=== PATIENT | male | born 1945 | race Caucasian/White ===

== ENCOUNTER → 2024-01-16 08:16 | Outpatient (REF) | payer OTHER, SELFPAY | LOC: PAVMRI 08:16 | PROVIDERS: ATTENDING PHYSICIAN Nurse Practitioner Family; FAMILY PHYSICIAN Internal Medicine | DX: R26.89 Other abnormalities of gait and mobility (principal); R26.0 Ataxic gait | CPT/HCPCS: 70553; A9575 ==

== ENCOUNTER 2024-04-23 18:24 | Emergency (ER) | payer OTHER, SELFPAY ==
[2024-04-23 18:35] VITALS: BP 119/64
[2024-04-23 18:54] LABS: % Basophils 0.5 % (0-2); % Immature Granulocytes 0.3 % (0-0.5); % Lymphocytes 21.8 % (20.5-51.1); % Monocytes 14.3 % (1.7-9.3); % Neutrophils 60.1 % (42.2-75.2); Absolute Basophils 0.1 10^3/uL (0-0.2); Absolute Eosinophils 0.3 10^3/uL (0-0.7); Absolute Monocytes 1.3 10^3/uL (0.1-0.6); Absolute Neutrophils 5.5 10^3/uL (1.4-6.5); Hematocrit 36.8 % (39.0-52.0); Hemoglobin 12.6 g/dL (13.0-18.0); Mean Corp Hgb Conc. 34.2 g/dL (33.0-37.0); Mean Corpuscular Hgb 31.2 pg (27.0-31.0); Mean Corpuscular Volume 91.1 fL (80.0-94.0); Mean Platelet Volume 9.9 fL (7.4-10.4); Nucleated Red Blood Cells % 0 % (-); Platelet Count 221 10^3/uL (130-400); Red Blood Cell Count 4.04 10^6/uL (4.70-6.10); Red Cell Dist. Width 14.3 % (11.5-14.5); White Blood Cell Count 9.1 10^3/uL (4.8-10.8)
[2024-04-23 19:17] LABS: ALT (SGPT) 11 U/L (0-50); AST (SGOT) 16 U/L (17-59); Albumin 4.2 g/dl (3.5-5.0); Alkaline Phosphatase 81 U/L (38-126); Blood Urea Nitrogen 18 mg/dl (9-20); Calcium 9.3 mg/dl (8.4-10.2); Carbon Dioxide 25 mmol/L (22-30); Chloride 104 mmol/L (98-107); Glucose 137 mg/dl (70-99); Potassium 4.1 mmol/L (3.5-5.1); Sodium 139 mmol/L (135-145); Total Bilirubin 0.9 mg/dl (0.2-1.3); Total Protein 6.8 g/dl (6.3-8.2); eGFR 56.58
[2024-04-23 20:23] VITALS: BP 126/56
--- NOTE | 2024-04-23 22:25 | ED.GENMED ---
History of Present Illness
General
Chief Complaint: Weakness
Time Seen by Provider: 04/23/24 20:47
History of Present Illness
History of Present Illness:
78-year-old male with history of diabetes and hypertension presented to the emergency department for an episode of dizziness. Patient reports this afternoon he was taking a nap. His grandson woke him up he was very disoriented. He did not know
where he was. He took 5 minutes to get his bearings in order. He was then feeling very dizzy going up and down the stairs. He went to go repair a pipe with PVC piping glue which he felt worsen the dizziness. Does admit that he does not drink
much water, drinks coffee. Denies focal weakness or sensory deficits to his extremities. Denies headache or visual changes. Denies known history of stroke, however reports that he was told in the past that he had an old stroke, however has no
deficits. Denies chest pain or difficulty breathing. Reports that he is currently asymptomatic denies additional acute medical complaints.
Past History
Past History
ED Past Medical History: CAD, Cancer, HTN and NIDDM
ED Past Surgical History: Cardiac
Social History
Tobacco: Former smoker
Alcohol: None
Drug: None
Personal:
Living: with family
Phy Exam
Physical Exam
Physical Exam:
General: Well-appearing, no clinical signs of dehydration, nontoxic and in no acute distress
HEENT: protecting airway
Neck: appears supple
CV: Normal heart rate, regular rhythm, no evidence of cyanosis
Resp: No accessory muscle use, no increased work of breathing, lungs clear to auscultation bilaterally
Abd: Soft and non-distended, no tenderness to palpation, normal bowel sounds
Extremities: No deformities, no swelling, no erythema, pulses and sensation intact
Neuro: alert, no focal neurologic deficit
: deferred
Rectal: deferred
Psych: Normal affect
Skin: Intact
Course
Orders/Labs/Results
Orders:
Orders
04/23/24 18:37
Electrocardiogram (*1) Urgent
Reason for Study: Fatigue / Weakness
CT Head W/o Iv Contrast Urgent
Comment:
Reason For Exam: weakness and dizzy/ diff ambulating
EKG- Treatment ONCE
04/23/24 18:48
Complete Blood Count/With Diff Urgent
Comprehensive Metabolic Panel Urgent
Abnormal Lab Results
04/23/24
18:48
RBC 4.04 L 10^6/uL
(4.70-6.10)
Hgb 12.6 L g/dL
(13.0-18.0)
Hct 36.8 L %
(39.0-52.0)
MCH 31.2 H pg
(27.0-31.0)
Absolute Monos (auto) 1.3 H 10^3/uL
(0.1-0.6)
Monocytes % 14.3 H %
(1.7-9.3)
Glucose 137 H mg/dl
(70-99)
AST 16 L U/L
(17-59)
04/23/24 18:48
04/23/24 18:48
Vital Signs
Initial and Last Documented VS:
Initial Vital Signs
Temp Pulse Resp BP Pulse Ox
98.0 F 88 16 119/64 98
04/23/24 18:35 04/23/24 18:35 04/23/24 18:35 04/23/24 18:35 04/23/24 18:35
Last Documented Vital Signs
Temp Pulse Resp BP Pulse Ox
98.0 F 71 16 126/56 100
04/23/24 18:35 04/23/24 20:23 04/23/24 20:23 04/23/24 20:23 04/23/24 20:23
MDM/Problems Addressed
MDM/Problems Addressed:
78-year-old male with history of hypertension, hyperlipidemia, diabetes presenting for episode of disorientation and dizziness prior to arrival. Vital signs on arrival are normal.
On exam, patient is resting comfortably, reports that he is currently asymptomatic. Unclear etiology of patient's preceding symptoms. Notes that he was sleeping, woke up from sleep and was disoriented. Symptoms do not appear consistent with CVA.
Nursing protocol placed, CT brain obtained. Feel reasonable given patient's age. However, no focal neurologic deficits. EKG obtained, no arrhythmia or signs of acute ischemia. Laboratory analysis sent to evaluate for signs of dehydration or
electrolyte abnormality. Patient does admit to not drinking a lot of fluids, has been very hot outside. Possible volume depletion component. Patient otherwise hemodynamically stable, nontoxic, without infectious symptoms, without concern for
systemic process.
22:15 - Labs unremarkable. CT brain without acute infarct. 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 Patient remains asymptomatic. Given resolution of symptoms, feel stable for discharge, however with close interval follow-up
with PCP. Family in agreement with plan. Strict return precautions communicated and patient verbalized understanding
*EKG
Interpreted by ED Provider?: Yes
EKG Intrepretation Date: 04/23/24
EKG Intrepretation Time: 21:00
Interpretation: normal
Comparison EKG: no changes
Heart Rate: 80
Rate: normal
Rhythm: sinus
[place]: normal axis
Interval: normal interval
QRS Pattern: normal QRS
Ischemia: no ischemia (baseline artifact)
*Critical Care Note
Total Time (30-74mins, 75-104mins- exclusive of procedures): Not Applicable
ED Attending Note
-
Portions of this chart may have been created with voice recognition software.� Occasional wrong word or��sound alike� substitutions may have occurred due to the inherent limitations of voice recognition software.
Discharge Plan
Departure
Prescriptions:
No Action
Trulicity 1.5 MG/0.5 ML pen injector
1.5 mg SQ MO
Repatha SureClick 140 mg/mL pen injector
140 mg SC Q2W
aspirin 81 mg Tablet,Delayed Release (Dr/Ec)
81 mg PO DAILY
Theragen Tablet
1 tab PO DAILY
levothyroxine [Synthroid] 125 mcg Tablet
125 mcg PO DAILY
losartan 25 mg Tablet
25 mg PO DAILY
Patient Comments:
04/23/24- patient currently not filling but ecw and patient stating he takes this
Jardiance 25 mg Tablet
25 mg PO DAILY
metformin 1,000 mg Tablet
1,000 mg PO BID
Referrals:
Rip Carrillo MD [Family Provider] -
Interventions
Interventions:
ED- Cardiac Assessment Last Done: 04/23/24 20:24
ED- Neurological Assessment Last Done: 04/23/24 20:24
ED- Pulmonary Assessment Last Done: 04/23/24 20:24
Discharge Date and Time
Print Language: [place]ET[place]ESE
[2024-04-23 22:57] VITALS: BP 124/78
== END 2024-04-23 22:59 | disposition home or self-care (01) ==
LOC: EMR 18:24
PROVIDERS: EMERGENCY PHYSICIAN Student in an Organized Health Care Education/Training Program; FAMILY PHYSICIAN Family Medicine
DX: R42 Dizziness and giddiness (principal); R53.1 Weakness; E11.9 Type 2 diabetes mellitus without complications; I10 Essential (primary) hypertension; I25.10 Atherosclerotic heart disease of native coronary artery without angina pectoris; Z86.73 Personal history of transient ischemic attack (TIA), and cerebral infarction without residual deficits; Z87.891 Personal history of nicotine dependence
CPT/HCPCS: 99284; 70450; 80053; 85025; 93005

== ENCOUNTER 2024-05-26 13:40 | Emergency (ER) | payer OTHER, SELFPAY ==
[2024-05-26] VITALS (8 sets, daily range): BP systolic 150–178; BP diastolic 65–87
--- NOTE | 2024-05-26 15:44 | EDRN ---
Dr. Wade in room w/ pt at this time.
[2024-05-26 16:24] LABS: % Basophils 0.6 % (0-2); % Eosinophils 2.9 % (0-6); % Immature Granulocytes 0.3 % (0-0.5); % Lymphocytes 26.2 % (20.5-51.1); % Monocytes 9.8 % (1.7-9.3); % Neutrophils 60.2 % (42.2-75.2); Absolute Basophils 0.1 10^3/uL (0-0.2); Absolute Eosinophils 0.3 10^3/uL (0-0.7); Absolute Lymphocytes 2.7 10^3/uL (1.2-3.4); Absolute Neutrophils 6.3 10^3/uL (1.4-6.5); Hematocrit 37.6 % (39.0-52.0); Hemoglobin 12.7 g/dL (13.0-18.0); Mean Corp Hgb Conc. 33.8 g/dL (33.0-37.0); Mean Corpuscular Hgb 30.8 pg (27.0-31.0); Mean Platelet Volume 9.6 fL (7.4-10.4); Nucleated Red Blood Cells % 0 % (-); Platelet Count 261 10^3/uL (130-400); Red Blood Cell Count 4.13 10^6/uL (4.70-6.10); Red Cell Dist. Width 13.3 % (11.5-14.5); White Blood Cell Count 10.4 10^3/uL (4.8-10.8)
[2024-05-26 16:35] LABS: Erythrocyte Sed Rate 24 mm/hour (0-20)
[2024-05-26 16:44] LABS: ALT (SGPT) 12 U/L (0-50); AST (SGOT) 19 U/L (17-59); Albumin 4.2 g/dl (3.5-5.0); Alkaline Phosphatase 103 U/L (38-126); Blood Urea Nitrogen 20 mg/dl (9-20); Calcium 9.7 mg/dl (8.4-10.2); Carbon Dioxide 24 mmol/L (22-30); Chloride 104 mmol/L (98-107); Glucose 150 mg/dl (70-99); Potassium 4.4 mmol/L (3.5-5.1); Sodium 138 mmol/L (135-145); Total Bilirubin 0.6 mg/dl (0.2-1.3); Total Protein 6.8 g/dl (6.3-8.2); eGFR > 60.00
--- NOTE | 2024-05-26 17:39 | PHANOTE ---
med rec note- patient very confused, I asked who he lives with he said he his but a couples minutes into the conversation patient mention his . he also stated he house is mess and he only been to his family doctor once since his
original pcp retired. he can not remember his medication name or what they are. ecw has losartan but no pharmacy fills.
--- NOTE | 2024-05-26 17:54 | ED.GENMED ---
History of Present Illness
General
Chief Complaint: Skin Problem
Source: patient
Time Seen by Provider: 05/26/24 15:37
History of Present Illness
History of Present Illness:
78-year-old male who says that he noted swelling a few days ago in his left foot and then today noted an open wound which prompted him to go to the urgent care. The urgent care referred him to the emergency department. He denies fever, chills,
drainage. He has neuropathy and does not perceive pain in this area. Patient has a history of a wound in his left foot in the past requiring surgery. He states that he does not regularly inspect his feet.
Past History
Past History
ED Past Medical History: CAD, Cancer, HTN and NIDDM
ED Past Surgical History: Cardiac
Social History
Tobacco: Former smoker
Alcohol: None
Drug: None
Personal:
Living: with family
Phy Exam
Physical Exam
Physical Exam:
GENERAL: Alert , in no apparent distress, nontoxic, well-appearing
EYE: pupils equal and reactive
NECK: Supple, no significant adenopathy.
ENT: o/p clr, mmm.
CARDIAC: Regular rate and rhythm .
LUNGS: Clear breath sounds bilaterally, no acute respiratory distress, no wheezes/rales/rhonchi
ABDOMEN: Soft, without focal tenderness, no r/g, no cvat
NEUROLOGICAL: Alert and oriented, no focal neuro deficits
SKIN: Warm and dry, skin intact.
MUSCULOSKELETAL: There is edema and erythema surrounding a 1.5 cm open ulcer at L plnt aspect 3rd mt area, no drainage/fluctuance/crepitus. I probed with sterile qtip to level of st, did not reach bone.
PSYCH: Normal and appropriate interaction.
Course
Orders/Labs/Results
Orders:
Orders
05/26/24 15:52
Foot, Left 3 View [CR Foot - Left Min 3 Views] Urgent
Comment:
Reason For Exam: plntr wound
05/26/24 16:16
CRP [C-Reactive Protein] Urgent
Complete Blood Count/With Diff Urgent
Comprehensive Metabolic Panel Urgent
ESR [Erythrocyte Sed Rate] Stat
Wound Culture [Wound/Abscess/Other Culture] Urgent
JAKOB Source: Foot
Specimen Description: Left
Date Specimen was Collected: 05/26/24
Time Specimen was Collected: 15:57
05/26/24 17:17
Piperacillin/Tazo 3.375 Gram [Zosyn] 3.375 gram in 50 ml IV NOW
Vancomycin 1 Gram/200 ml [Vancocin] 1 gram in 200 ml IV NOW
Abnormal Lab Results
05/26/24
16:16
RBC 4.13 L 10^6/uL
(4.70-6.10)
Hgb 12.7 L g/dL
(13.0-18.0)
Hct 37.6 L %
(39.0-52.0)
Absolute Monos (auto) 1.0 H 10^3/uL
(0.1-0.6)
Monocytes % 9.8 H %
(1.7-9.3)
ESR 24 H mm/hour
(0-20)
Glucose 150 H mg/dl
(70-99)
C-Reactive Protein 12.10 H mg/L
(0.0-10.00)
05/26/24 16:16
05/26/24 16:16
Vital Signs
Initial and Last Documented VS:
Initial Vital Signs
Temp Pulse Resp BP Pulse Ox
98.7 F 84 16 150/87 98
05/26/24 13:44 05/26/24 13:44 05/26/24 13:44 05/26/24 13:44 05/26/24 13:44
Last Documented Vital Signs
Temp Pulse Resp BP Pulse Ox
98.7 F 71 16 178/80 99
05/26/24 13:44 05/26/24 20:09 05/26/24 20:09 05/26/24 20:09 05/26/24 20:09
*Critical Care Note
Total Time (30-74mins, 75-104mins- exclusive of procedures): Not Applicable
Update Note
Update Note:
Patient presents to the Emergency Department with foot ulcer
Number and Complexity of Problems Addressed at the Encounter
� Chronic conditions affecting care:
� Acute Exacerbation and/or Progression of Chronic Illness:
� Differential Diagnosis includes: But not limited to foreign body, cellulitis, osteomyelitis, abscess, etc. etc.
Amount and/or Complexity of Data to be Reviewed and Analyzed
� I performed an independent evaluation of and my interpretation is:
EKG:
CT:
Xrays:read by rads There is a soft tissue defect along the lateral aspect of the foot with underlying progressive erosion of the mid/distal fifth metatarsal and base of the fifth proximal phalanx. Findings likely represent
osteomyelitis.
Laboratory Studies:l elevated esr, generall unremarkable
Other:
� Review of other/old records reveals: prior foot wound---dc summary reviewed
� Clinical information was obtained by an independent historian:
� Prescriptions/Medications Considered but not given:
� Further testing considered but not performed:
Risk of Complications and/or Morbidity or Mortality of Patient Management
� Social determinants of health affecting care:
� Discussion with other providers (PCP, Hospitalists, Consultants, etc):
� Escalation of care including admission/observation vs risk of discharge considered: Long discussion with patient he is aware of obvious cellulitis and strong suspicion for osteomyelitis, recommendation for admission to the
hospital and IV antibiotics etc. 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 I tried to contact case management but they are no longer here to try to help create options for him in terms of care for her
while he is cared for here. He does not have family members or neighbors that can care for her tonight. He will likely leave AGAINST MEDICAL ADVICE, but return to the hospital as soon as he is able to stay here for care and secure care for her.
He understands that his condition is serious, and leaving could lead to amputation, sepsis, serious injury, and/or .
ED Attending Note
-
Portions of this chart may have been created with voice recognition software.� Occasional wrong word or��sound alike� substitutions may have occurred due to the inherent limitations of voice recognition software.
Discharge Plan
Departure
Patient Disposition: Against Medical Advice
Date of Disposition: 05/26/24
Time of Disposition: 18:49
Patient with high blood pressure during this ER visit?: Yes
Condition: Good
Discharge Problem:
Cellulitis of foot
Instructions: Osteomyelitis in adults, Cellulitis (Skin Infection), Adult (DC), BLOOD PRESSURE
Prescriptions:
No Action
Trulicity 1.5 MG/0.5 ML pen injector
1.5 mg SQ MO
Repatha SureClick 140 mg/mL pen injector
140 mg SC Q2W
aspirin 81 mg Tablet,Delayed Release (Dr/Ec)
81 mg PO DAILY
Theragen Tablet
1 tab PO DAILY
levothyroxine [Synthroid] 125 mcg Tablet
125 mcg PO DAILY
losartan 25 mg Tablet
25 mg PO DAILY
Patient Comments:
04/23/24- patient currently not filling but ecw and patient stating he takes this
Jardiance 25 mg Tablet
25 mg PO DAILY
metformin 1,000 mg Tablet
1,000 mg PO BID
Referrals:
Rip Carrillo MD [Family Provider] -
Activity Restrictions/Additional Instructions:
WE SUSPECT, ALTHOUGH NOT YET FULLY CONFIRM, THAT YOU HAVE AN INFECTION OF THE BONE CALLED OSTEOMYELITIS. YOU ALSO HAVE AN INFECTION OF THE SOFT TISSUE CALLED CELLULITIS. IT IS CRITICAL THAT YOU STAY IN THE HOSPITAL FOR CONTINUED CARE INCLUDING IV
ANTIBIOTICS AND FURTHER CARE AND TESTING. AT THIS TIME, YOU DECLINED. IF YOU CHANGE YOUR MIND, PLEASE COME BACK IMMEDIATELY! WE WANT TO TAKE CARE OF YOU!
Interventions
Interventions:
*Risk Screen - Suicide Last Done: 05/26/24 13:44
*General Assessment Last Done: 05/26/24 13:44
*Neglect/Abuse Screening Last Done: 05/26/24 13:44
ED- Fall Risk Assessment Last Done: 05/26/24 15:16
*ED COVID-19 Vaccine History Last Done: 05/26/24 15:00
*Nursing Disposition Last Done: 05/26/24 20:30
ED-Skin Assessment Last Done: 05/26/24 20:12
Discharge Date and Time
Discharge Date/Time: 05/26/24 20:30
Print Language: TRINIDAD[place]
--- NOTE | 2024-05-26 18:14 | EDRN ---
Pt has concerned about admission to hospital as he is sole caregiver for his and has no one who can care for her. He is declining IV antibiotics at this time. He asked this RN if we could have her placed in [facility] where she has been
in the past.
--- NOTE | 2024-05-26 18:19 | EDRN ---
Pt has agreed to have the zosyn at this time.
[2024-05-26] MEDS: ZOSYN 50 IV (18:20)
--- NOTE | 2024-05-26 18:24 | EDRN ---
Pt OOB to BR at this time. Pt states spouse has only a daughter in [place] and sister in [facility] and no one else in [facility] who can care for spouse.
--- NOTE | 2024-05-26 18:39 | EDRN ---
Dr. Wade speaking w/ pt at this time.
--- NOTE | 2024-05-26 18:48 | EDRN ---
Dr. Wade spoke w/ pt and pt is okay w/ administration of vancomycin.
[2024-05-26] MEDS: VANCOCIN 200 IV (18:55)
--- NOTE | 2024-05-26 19:11 | EDRN ---
I reviewed AMA paperwork w/ pt. I reported off to Demian Trotter RN who will discharge pt when Vancomycin is completed.
== END 2024-05-26 20:30 | disposition left against medical advice (07) ==
LOC: EMR 13:40
PROVIDERS: EMERGENCY PHYSICIAN Emergency Medicine; FAMILY PHYSICIAN Family Medicine
DX: L03.116 Cellulitis of left lower limb (principal); I25.10 Atherosclerotic heart disease of native coronary artery without angina pectoris; I10 Essential (primary) hypertension; E11.40 Type 2 diabetes mellitus with diabetic neuropathy, unspecified; Z87.891 Personal history of nicotine dependence
CPT/HCPCS: 99283; 96365; 96367; 73630; 80053; 85025; 85652; 86140; 87070; 87077; 87147; 87186; 87205

== ENCOUNTER 2024-05-30 14:49 | Inpatient (IN) | payer OTHER, SELFPAY ==
[2024-05-30] VITALS (18 sets, daily range): BP systolic 12–190; BP diastolic 71–99; BMI 24.7; BMI 23.6
--- NOTE | 2024-05-30 11:19 | ED.GENMED ---
History of Present Illness
<Rafa Rao PA-C - Last Filed: 05/30/24 14:33>
General
Chief Complaint: Skin Problem
Time Seen by Provider: 05/30/24 11:07
History of Present Illness
History of Present Illness:
Patient is a 78-year-old male with past medical history of coronary artery disease, hypertension, hyperlipidemia, diabetes, hypothyroidism, anemia, history of tobacco use, history of diabetic neuropathy, and depression, here today for evaluation of
a wound along his left foot. Patient was initially seen here on 05/26/2024 for similar symptoms. He was seen in the urgent care and ultimately directed to the emergency department given findings. Patient has had no pain. No fevers. No pus or
drainage. He does report a prior history of a wound along the pinky toe of his left foot which ultimately required surgery. Last week patient underwent blood work which revealed evidence of mild anemia with an elevated ESR and CRP. X-rays were
obtained which revealed findings concerning for osteomyelitis. An attempt was made to admit the patient, however, patient stated he did not have anyone to care for his and ultimately left AGAINST MEDICAL ADVICE. Patient presents here today
because he has found a facility to care for his and at this time is willing to be admitted to the hospital for IV antibiotics and specialist consultation.
Past History
<TELMA Bearden Last Filed: 05/30/24 14:33>
Past History
ED Past Medical History: CAD, Cancer, HTN and NIDDM
ED Past Surgical History: Cardiac
Social History
Tobacco: Former smoker
Alcohol: None
Drug: None
Personal:
Living: with family
Review of Systems
<TELMA Bearden Last Filed: 05/30/24 14:33>
Review of Systems
All Other Systems: ROS reviewed and negative except as documented in HPI and ROS
Phy Exam
<TELMA Bearden Last Filed: 05/30/24 14:33>
Physical Exam
Physical Exam:
GENERAL: Alert , in no apparent distress
EYE: pupils equal and reactive
NECK: Supple, no significant adenopathy.
ENT: o/p clr, mmm.
CARDIAC: Regular rate and rhythm .
LUNGS: Clear breath sounds bilaterally, no acute respiratory distress, no wheezes/rales/rhonchi
NEUROLOGICAL: Alert and oriented, no focal neuro deficits
SKIN: Warm and dry, skin intact. There is a 2 x 1 cm circular deep ulcerated open wound noted along the plantar aspect of the left forefoot just below the third toe, there is mild purulence noted inside of the wound, mild swelling noted surrounding
the lesion, no erythema. Patient neurovascularly intact. Pulses 2+ throughout. Sensation/motor intact throughout.
MUSCULOSKELETAL: No edema, well perfused.
PSYCH: Normal and appropriate interaction.
Course
<Rafa Rao PA-C - Last Filed: 05/30/24 14:33>
Orders/Labs/Results
Orders:
Orders
05/30/24 11:25
Piperacillin/Tazo 3.375 Gram [Zosyn] 3.375 gram in 50 ml IV NOW
Vancomycin 1 Gram/200 ml [Vancocin] 1 gram in 200 ml IV NOW
05/30/24 11:35
Basic Metabolic Panel Urgent
CRP [C-Reactive Protein] Urgent
Complete Blood Count/With Diff Urgent
ESR [Erythrocyte Sed Rate] Urgent
Lactic Acid Urgent
Blood Culture Routine
JAKOB Source: Blood/Venous
Specimen Description:
Blood Culture Urgent
JAKOB Source: Blood/Venous
Specimen Description:
05/30/24 12:40
Vancomycin 1 Gram/200 ml [Vancocin] 1 gram in 200 ml .ROUTE .STK-MED
05/30/24 14:08
Lower Ext No Joint, Left With MR [MR Left Le No Joint With] Routine
Comment: left foot open wound
Reason For Exam: osteomyelitis
OK for patient to be off Cardiac Monitoring for MRI: Yes
Recent pill cam endoscopy?: No
Pacemaker/Defibrillator?: No
05/30/24 14:12
INFECTIOUS DISEASE CONSULT Routine
Consulting Provider: Lyssa Odonnell
Was physician already notified: Yes
Reason for consult: left plantar wound concern osteo
05/30/24 14:13
PODIATRY CONSULT Routine
Consulting Provider: Mari Burk
Was physician already notified: Yes
Reason for consult: left plantar wound concern osteo
05/30/24 14:14
Admit/Transfer Patient As Directed
Co-Sign Provider:
Level of Care: Inpatient admission
Assign to:: Medical/Surgical
Physician / Group: pina aaron
Diagnosis: L foot plantar wound concern osteom, DM2
Reason for Hospitalization: L foot plantar wound concern osteom, DM2
Expected length of stay greater than two midnights?: Yes
ELOS- Estimated Length of Stay in days: 4
I certify the patient meets the requirements for IP care: Yes
Code Status As Directed
Resuscitation Status: Full Code
05/30/24 14:16
PRN Pain Medication Management As Directed
May give lesser potent ordered pain med per pt: Yes
preference::
Protocol:: Medication orders for pain may be administered in a
manner that supports deferring to patient preference
when the pt is:
- Requesting an ordered lesser potent pain medication.
Least to most potent pain medications are defined
as: acetaminophen < NSAID < tramadol < opioids
(morphine, oxycodone, hydromorphone).
- Requesting a lesser dose of the same medication IF
ORDERED.
- Requesting a less intrusive route of administration
if both routes are prescribed by the provider (PO <
IV).
05/30/24 Dinner
1800 calorie (15 carb) Diabetic
At Your Request: Full Participation
05/30/24 16:00
Cefepime HCl [Maxipime] 1,000 mg IV Q8H
Sterile Water [Sterile Water For Injection] 10 ml IV Q8H
Abnormal Lab Results
05/30/24
11:35
RBC 3.88 L 10^6/uL
(4.70-6.10)
Hgb 12.0 L g/dL
(13.0-18.0)
Hct 35.3 L %
(39.0-52.0)
Absolute Monos (auto) 0.7 H 10^3/uL
(0.1-0.6)
BUN 23 H mg/dl
(9-20)
Glucose 182 H mg/dl
(70-99)
05/30/24 11:35
05/30/24 11:35
Vital Signs
Initial and Last Documented VS:
Initial Vital Signs
Temp Pulse Resp BP Pulse Ox
97.9 F 73 18 162/99 99
05/30/24 10:49 05/30/24 10:49 05/30/24 10:49 05/30/24 10:49 05/30/24 10:49
Last Documented Vital Signs
Temp Pulse Resp BP Pulse Ox
97.9 F 73 18 146/73 97
05/30/24 10:49 05/30/24 10:49 05/30/24 10:49 05/30/24 12:00 05/30/24 12:30
<Jackeline Wade MD - Last Filed: 05/30/24 12:10>
Orders/Labs/Results
Orders:
Orders
05/30/24 11:25
Piperacillin/Tazo 3.375 Gram [Zosyn] 3.375 gram in 50 ml IV NOW
Vancomycin 1 Gram/200 ml [Vancocin] 1 gram in 200 ml IV NOW
05/30/24 11:35
Basic Metabolic Panel Urgent
CRP [C-Reactive Protein] Urgent
Complete Blood Count/With Diff Urgent
ESR [Erythrocyte Sed Rate] Urgent
Lactic Acid Urgent
Blood Culture Routine
JAKOB Source: Blood/Venous
Specimen Description:
Blood Culture Urgent
JAKOB Source: Blood/Venous
Specimen Description:
05/30/24 12:40
Vancomycin 1 Gram/200 ml [Vancocin] 1 gram in 200 ml .ROUTE .STK-MED
05/30/24 14:08
Lower Ext No Joint, Left With MR [MR Left Le No Joint With] Routine
Comment: left foot open wound
Reason For Exam: osteomyelitis
OK for patient to be off Cardiac Monitoring for MRI: Yes
Recent pill cam endoscopy?: No
Pacemaker/Defibrillator?: No
05/30/24 14:12
INFECTIOUS DISEASE CONSULT Routine
Consulting Provider: Lyssa Odonnell
Was physician already notified: Yes
Reason for consult: left plantar wound concern osteo
05/30/24 14:13
PODIATRY CONSULT Routine
Consulting Provider: Mari Burk
Was physician already notified: Yes
Reason for consult: left plantar wound concern osteo
05/30/24 14:14
Admit/Transfer Patient As Directed
Co-Sign Provider:
Level of Care: Inpatient admission
Assign to:: Medical/Surgical
Physician / Group: pina aaron
Diagnosis: L foot plantar wound concern osteom, DM2
Reason for Hospitalization: L foot plantar wound concern osteom, DM2
Expected length of stay greater than two midnights?: Yes
ELOS- Estimated Length of Stay in days: 4
I certify the patient meets the requirements for IP care: Yes
Code Status As Directed
Resuscitation Status: Full Code
05/30/24 14:16
PRN Pain Medication Management As Directed
May give lesser potent ordered pain med per pt: Yes
preference::
Protocol:: Medication orders for pain may be administered in a
manner that supports deferring to patient preference
when the pt is:
- Requesting an ordered lesser potent pain medication.
Least to most potent pain medications are defined
as: acetaminophen < NSAID < tramadol < opioids
(morphine, oxycodone, hydromorphone).
- Requesting a lesser dose of the same medication IF
ORDERED.
- Requesting a less intrusive route of administration
if both routes are prescribed by the provider (PO <
IV).
05/30/24 Dinner
1800 calorie (15 carb) Diabetic
At Your Request: Full Participation
05/30/24 16:00
Cefepime HCl [Maxipime] 1,000 mg IV Q8H
Sterile Water [Sterile Water For Injection] 10 ml IV Q8H
Abnormal Lab Results
05/30/24
11:35
RBC 3.88 L 10^6/uL
(4.70-6.10)
Hgb 12.0 L g/dL
(13.0-18.0)
Hct 35.3 L %
(39.0-52.0)
Absolute Monos (auto) 0.7 H 10^3/uL
(0.1-0.6)
BUN 23 H mg/dl
(9-20)
Glucose 182 H mg/dl
(70-99)
05/30/24 11:35
05/30/24 11:35
Vital Signs
Initial and Last Documented VS:
Initial Vital Signs
Temp Pulse Resp BP Pulse Ox
97.9 F 73 18 162/99 99
05/30/24 10:49 05/30/24 10:49 05/30/24 10:49 05/30/24 10:49 05/30/24 10:49
Last Documented Vital Signs
Temp Pulse Resp BP Pulse Ox
97.9 F 73 18 146/73 97
05/30/24 10:49 05/30/24 10:49 05/30/24 10:49 05/30/24 12:00 05/30/24 12:30
<Rafa Rao PA-C - Last Filed: 05/30/24 14:33>
MDM/Problems Addressed
Differential Diagnosis Includes:
Patient is a 78-year-old male with past medical history of coronary artery disease, hypertension, hyperlipidemia, diabetes, hypothyroidism, anemia, history of tobacco use, history of diabetic neuropathy, and depression, here today for evaluation of
a wound along his left foot. Overall, patient appears very well. Vitals remarkable for a mildly elevated blood pressure. Physical examination described above. Given symptoms/findings, we will admit patient to medicine for IV antibiotics and
specialist consultation. Will repeat blood work and trend.
<Rafa Rao PA-C - Last Filed: 05/30/24 14:33>
*Critical Care Note
Total Time (30-74mins, 75-104mins- exclusive of procedures): Not Applicable
ED Attending Note
<Rafa Rao PA-C - Last Filed: 05/30/24 14:33>
-
Portions of this chart may have been created with voice recognition software.� Occasional wrong word or��sound alike� substitutions may have occurred due to the inherent limitations of voice recognition software.
<Jackeline Wade MD - Last Filed: 05/30/24 12:10>
ED Attending Note
Patient seen and examined by attending physician: Yes
I performed the substantive portion of visit, reviewed & personally made and approve the management plan that is documented in note by myself or MANUELA.: Yes
ED Attending Note:
Patient seen on Tuesday for cellulitis and likely osteomyelitis but was unable to stay at that time, has secured care for his and presents again, no new symptoms, continues with swelling and open wound of his foot, no associated purulent
discharge, fever, chills, etc.
Discharge Plan
Departure
Patient Disposition: Admit
Date of Disposition: 05/30/24
Time of Disposition: 13:51
Admit to: Med/Surg
Admit to doctor: Usman
Presentation/result/management discussed w/ accepting MD/DO: Hospitalist
Patient with high blood pressure during this ER visit?: Yes
Condition: Fair
Covid-19: Not Applicable
Discharge Problem:
Acute osteomyelitis of left foot
Prescriptions:
No Action
Trulicity 1.5 MG/0.5 ML pen injector
1.5 mg SQ MO
Repatha SureClick 140 mg/mL pen injector
140 mg SC Q2W
aspirin 81 mg Tablet,Delayed Release (Dr/Ec)
81 mg PO DAILY
Theragen Tablet
1 tab PO DAILY
levothyroxine [Synthroid] 125 mcg Tablet
125 mcg PO DAILY
losartan 25 mg Tablet
25 mg PO DAILY
Patient Comments:
04/23/24- patient currently not filling but ecw and patient stating he takes this
Jardiance 25 mg Tablet
25 mg PO DAILY
metformin 1,000 mg Tablet
1,000 mg PO BID
sulfamethoxazole-trimethoprim [Bactrim DS] 800-160 mg tablet
1 tab PO BID 10 Days Qty: 20 0RF
Referrals:
Yesy Gallagher MD [Family Provider] -
Interventions
Interventions:
*Risk Screen - Suicide Last Done: 05/30/24 11:58
*General Assessment Last Done: 05/30/24 11:33
*Neglect/Abuse Screening Last Done: 05/30/24 11:58
ED- Fall Risk Assessment Last Done: 05/30/24 11:58
*ED COVID-19 Vaccine History Last Done: 05/30/24 11:33
ED-Skin Assessment Last Done: 05/30/24 11:58
Discharge Date and Time
Print Language: LATVIAN
--- NOTE | 2024-05-30 11:36 | PHANOTE ---
med rec note- patient does not know his medication, patient also keeping repeat about his pcp retiring, may or may not be live?, and how his house and furniture is a mess.
[2024-05-30] MEDS: ZOSYN 50 IV (12:17)
[2024-05-30] MEDS: VANCOCIN 200 IV ×2 (12:46→17:13)
[2024-05-30 12:50] LABS: % Basophils 0.8 % (0-2); % Eosinophils 2.8 % (0-6); % Immature Granulocytes 0.3 % (0-0.5); % Lymphocytes 20.6 % (20.5-51.1); % Monocytes 7.8 % (1.7-9.3); % Neutrophils 67.7 % (42.2-75.2); Absolute Basophils 0.1 10^3/uL (0-0.2); Absolute Eosinophils 0.2 10^3/uL (0-0.7); Absolute Lymphocytes 1.8 10^3/uL (1.2-3.4); Absolute Monocytes 0.7 10^3/uL (0.1-0.6); Absolute Neutrophils 5.9 10^3/uL (1.4-6.5); Hematocrit 35.3 % (39.0-52.0); Mean Corpuscular Hgb 30.9 pg (27.0-31.0); Mean Platelet Volume 9.7 fL (7.4-10.4); Nucleated Red Blood Cells % 0 % (-); Platelet Count 295 10^3/uL (130-400); Red Blood Cell Count 3.88 10^6/uL (4.70-6.10); Red Cell Dist. Width 13.1 % (11.5-14.5); White Blood Cell Count 8.7 10^3/uL (4.8-10.8)
[2024-05-30 13:29] LABS: Blood Urea Nitrogen 23 mg/dl (9-20); Calcium 9.8 mg/dl (8.4-10.2); Carbon Dioxide 24 mmol/L (22-30); Chloride 104 mmol/L (98-107); Estimated Creatinine Clearance 58 ml/min; Glucose 182 mg/dl (70-99); Potassium 4.1 mmol/L (3.5-5.1); Sodium 137 mmol/L (135-145); eGFR > 60.00
--- NOTE | 2024-05-30 13:35 | HPS.HSE ---
Family Physician
-
Family Physician: Yesy Gallagher
Chief Complaint
-
Left foot wound x 3 weeks
History of Present Illness
78-year-old male who was seen on 05/26/2024 in the ER for a diabetic left plantar foot wound below third metatarsal x 3 weeks. He had x-rays concerning for osteomyelitis had mild anemia with elevated ESR and CRP. He was treated with IV Zosyn and
vancomycin single dose in the ER despite no WBC pain or fevers but he was unable to stay due to not having anyone to care for his . He returns today for treatment as he has a facility to care for his so he can be admitted for care. He
denies fever, chills, chest pain, palpitations, shortness breath, cough, abdominal pain, nausea, vomiting, diarrhea, urinary symptoms. He has past medical history of DM2/diabetic neuropathy, CAD/CABG 2007, cardiac cath with stents,, HTN, HLD,
hypothyroidism, anemia, former tobacco use, right lower lung resection secondary to lung nodule, asthma, depression.
Medical History
Past Medical History
Past Medical History: Reports Other
Additional Past Medical History:
DM2/diabetic neuropathy
HTN
HLD
Hypothyroidism
Anemia
CAD/CABG 2007
Cardiac cath with stents
Former tobacco use
Right lower lung resection secondary to lung nodule
Asthma
Depression
Past Surgical History: Reports Other
Additional Past Surgical History:
Hx wound to left foot with surgical procedure greater than 10 years ago
Cardiac cath stents, CABG 2007
Right lower lung resection/nodule removal
Social History
Tobacco: Former Smoker (36-year max 1.5 pack a day quit 40 years ago)
Alcohol: None
Drug: None
Personal:
Living: With Family ( whom had a stroke has mild dementia he cares for)
Employment: Retired
Family History
Family History: Not pertinent
Allergies / Home Medications
Allergies reflects when Allergies were last updated in [employer].
Home Medications with original date entered in [employer]
Allergy/Medication List:
Allergies
Allergy/AdvReac Type Severity Reaction Status Date / Time
[id number] Reductase Allergy Myalgias Verified 05/26/24 13:43
Inhibitor
Home Medications
dulaglutide 1.5 mg/0.5 mL subcutaneous pen injector (Trulicity) 1.5 mg SQ MO Diabetes 01/01/22
evolocumab 140 mg/mL subcutaneous pen injector (Repatha SureClick) 140 mg SC Q2W High Cholesterol 08/29/23
aspirin 81 mg tablet,delayed release 81 mg PO DAILY 04/23/24
empagliflozin 25 mg tablet (Jardiance) 25 mg PO DAILY 04/23/24
levothyroxine 125 mcg tablet (Synthroid) 125 mcg PO DAILY 04/23/24
losartan 25 mg tablet 25 mg PO DAILY 04/23/24
metformin 1,000 mg tablet 1,000 mg PO BID 04/23/24
therapeutic multivitamin 1 tab PO DAILY 04/23/24
sulfamethoxazole 800 mg-trimethoprim 160 mg tablet (Bactrim DS) 1 tab PO BID 10 days #20 tabs 05/30/24
Review of Systems
-
History Source: Patient
A 12 point ROS was completed and negative except as noted: Yes
Constitutional: Denies Fever or Chills
EENT: Denies Sore Throat or Runny Nose
Respiratory: Denies Cough, Hemoptysis or Trouble Breathing
Cardiac: Denies Chest Pain, Diaphoresis, Palpitations or Syncope
Abdomen/GI: Denies Abdominal Pain, Nausea, Vomiting or Diarrhea
: Denies Dysuria, Frequency, Flank Pain, Incontinence or Difficulty Voiding
Musculoskeletal: Reports Edema (Trace left foot) and Other (Left foot plantar open wound with serous drainage below third metatarsal slight erythema to dorsal aspect of foot just below third and fourth metatarsal); Denies Joint Pain
Skin: Denies Itching or Rash
Neurological: Denies Dizzy, Headache or Weakness
Endocrine: Reports No Symptoms
Hematologic/Lymphatic: Reports No Symptoms
Psych: Reports Calm
Physical Exam
Vital Signs
Vital Signs
Temp Pulse Resp BP Pulse Ox
97.9 F 73 18 146/73 97
05/30/24 10:49 05/30/24 10:49 05/30/24 10:49 05/30/24 12:00 05/30/24 12:30
Physical Exam
General: Comfortable and Conversant; No Pain, Fever or Chills
HEENT: NormoCephalic, Anicteric, Moist mucous membranes and PERRLA
Respiratory: Clear; No Wheezes, Rales or Rhonchi
Cardiac: S1/S2 and Murmur (Systolic 2/6); No Rub, Gallop or Peripheral Edema
Breast: Deferred by me
GI: Soft, Non Tender, Non Distended, Normal Bowel Sounds and No Hepatosplenomegaly
Rectal: Deferred by Provider
Genito-urinary: Deferred by me
Musculoskeletal: No Clubbing, No Cyanosis and Edema, Left Lower Extremity (Trace edema left foot,Left foot plantar open wound with serous drainage below third metatarsal slight erythema to dorsal aspect of foot just below third and fourth
metatarsa); No Edema, Left Upper Extremity or Edema, Right Upper Extremity
Skin: Warm and Dry; No Jaundice
Neuro: AO x 3, No Motor Deficits, Nonfocal/grossly intact, Cranial Nerves Intact and No Sensory Deficits; No Slurred Speech, Facial Droop or Tremors
Psych: Calm
Laboratory Results
-
05/30/24 11:35
05/30/24 11:35
Laboratory Results
Lactic Acid 1.0 mmol/L (0.7-2.0) 05/30/24 11:35
Impression/Plan
-
Impression/plan:
Admit to MedSurg
#Diabetic left foot wound concerning for Osteomyelitis fifth metatarsal
#Hx wound to this foot with surgical procedure greater than 10 years ago
Wound culture 05/26/2024: Morganella morganii, MSSA, Streptococcus algalataie
-Was given IV vancomycin IV Zosyn on 05/26/2024 for single dose but had to leave AMA
-Patient has been taking Bactrim 1 tab twice daily since 05/26/2024
-Continue IV vancomycin and cefepime
-Consult Podiatry
-MRI left foot with contrast
-PT/OT/case management consult
X-ray 05/26/2024: Soft tissue defect along the lateral aspect of the foot underlying progressive erosion of the mid/distal fifth metatarsal and base of the fifth
proximal phalanx findings likely representing osteomyelitis
#DM2/diabetic neuropathy
-Accu-Cheks with SSI, check HgbA1c
-HOLD Jardiance 25 mg daily, metformin 1000 mg twice daily
-Patient on Trulicity 1.5 mg subcu Mondays
#HTN-benign
BP 146/73
-Continue losartan 25 mg daily
#HLD
-Patient on Repatha 140 mg subcu every 2 weeks
#Hypothyroidism
-Continue Synthroid 125 mcg p.o. daily
# Anemia hx normocytic
Hgb stable 12, MCV 91
#CAD/CABG 2007
#Cardiac cath with stents
-Continue aspirin 81 mg daily, losartan 25 mg daily, Repatha
#Former tobacco use
-Quit 40 years ago prior 36-year 1.5 pack day max
#Right lower lung resection secondary to lung nodule
Asthma- no exacerbation
-No current medication
#Depression
-No reported meds
DVT prophylaxis
Subcu Lovenox
Full code
--- NOTE | 2024-05-30 13:37 | W.PN.UPDATE ---
Update Note
Progress Note Update
I have independently evaluated the patient and agree with assessment and plan deliniated in same date H&P. In addition:
78yo M with PMHX of hypothyroidism, HTN, DM, HLD returned for the L foot swelling and wound. He recently was in ED but had to leave AMA due to the family issues. XR foot from 05/26/24 showed possible acute OM of L mid/distal fifth metatarsal and base
of fifth proximal phalanx
On exam has deep ulcer over the plantar prominence of 3-4 toes, that started appr 3 weeks ago. Had Hx of OM s/p bone resection without amputation with lateral scar on L foot
A/P:
#L foot diabetic wound with acute OM
Vanco/cefepime
Follow Bcx
MRI L foot
Podiatry consult
ID consult
previous wound Cx showed Morganella morganii, MSSA and S.aglactae
follow ESR/CRP
#DM type 2 with circulatory complications
US arterial LE
Accuchecks, Insulin SS, DM diet, check HgbA1c, hold oral hypoglycemics
#Essential HTN
#Hypothyroidism
#HLD
cont home meds
intollerant of statin
DVT ppx hep
FUll code
We have spent at least 78min admitting the patient
[2024-05-30 14:55] LABS: Erythrocyte Sed Rate 24 mm/hour (0-20)
[2024-05-30 16:43] LABS: Glucose - Point of Care 165 mg/dl (70-99)
--- NOTE | 2024-05-30 16:55 | PHA.VAN.IN ---
Assessment
- Assessment
Renal Function: Appears elevated from baseline (09/06/23 SCR = 0.9)
Concomitant Antimicrobials: CEFEPIME
- Previous Dosing Experience
Previous Regimen: 750MG IV Q12H
Date of Regimen: 09/01/23
Provided Trough of: 12.2 PREDICTED
Provided AUC of: 426 PREDICTED
Patient's SCR is: Elevated compared to previous dosing experience (09/01/23 SCR = 0.9)
Patient's weight is: Decreased compared to previous dosing experience (09/01/23 WT = 80.8 KG)
AUC Dosing Plan
- Dosing Variables
Dosing Weight (kg): 78
Dosing CrCl (ml/min): 58
Vd coefficient (L/kg): 0.7
- Empiric Dosing
Initial / Loading Dose: 2gm
Maintenance Regimen: 1500MG IV Q24H
Estimated AUC (mcg*h/mL): 544
Estimated Peak (mcg*h/mL): 38.3
Estimated Trough (mcg/ml): 11.8
Estimated Half Life (H): 13.2
Pharmacokinetics Vancomycin I
- -
Patient Age: 78
Patient Sex: Male
Vancomycin Day #: 1
Indication: [facility] (DIABETIC FOOT/OM)
Requesting Provider: URIEL
Height / Weight:
Height 5 ft 10 in
Actual Weight 74.559 kg
Pertinent Past Medical History: DM
- Vital Signs / Lab Results
Temp Pulse Resp BP Pulse Ox
97.3 F 71 18 173/95 96
05/30/24 16:44 05/30/24 16:44 05/30/24 16:44 05/30/24 16:44 05/30/24 16:44
Lab Results - Hematology
05/30/24
11:35
WBC 8.7
Lab Results - Chemistry
05/30/24
11:35
BUN 23 H
Creatinine 1.1
Estimated Creat Clear 58
05/30/24
11:35
Lactic Acid 1.0
--- NOTE | 2024-05-30 16:56 | W.CS.POD ---
Consult Summary - Podiatry
-
Consult by Blossom Low at 1416
Consult performed by Mari Burk DPM at 1545
CC / HPI / ROS
-
HPI: This is a 78 yo diabetic man who is seen with unknown # weeks history of chronic non healing wound left foot. He thinks it was 3-4 weeks ago.
He has not sought treatment until earlier this year when he noticed the wound was getting bigger.
PMHX of hypothyroidism, HTN, DM, HLD returned for the L foot swelling and wound. He recently was in ED but had to leave AMA due to the family issues. XR foot from 05/26/24 showed possible acute OM of L mid/distal fifth metatarsal and base of fifth
proximal phalanx- but this was reviewed and noted to be post op changes and unrelated to his current problem
A/P DM2 with DPN and LOPS
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
OM-confirmed on MRI
- d/w pt mri results and the climical findings, we discussed surgical debridement of bone and he would like to proceed, He states he has been NPO all day
called an added to OR schedule today
Medical History
Chief Complaint
chronic wound left foot/OM left 3rd toe/metatarsal
History of Present Illness
as above
Past Medical / Surgical History
as above
reviewed and added to chart
PSH included previous 5th met resection/partial left for osteomyelitis
Medications
ASA, Jardiance, synthroid, losartan, metformin, repatha, bactrim, trulicity
Allergies
statins-myalgias
Social / Family History
reviewed but not pertinent
Physical Exam
Vital Signs
Vital Signs
Temp Pulse Resp BP Pulse Ox
97.3 F 60 13 179/88 93
05/30/24 16:44 05/30/24 18:45 05/30/24 18:45 05/30/24 18:45 05/30/24 18:45
Physical Exam
General: AAO x 3
LE exam-patent pedal pulses 2/4 DPA and feeble SP[employer] CLE[employer]ER, ulcer measures 1.5 cm x 1cm x 1 cm deep. sub 3rd metatarsal head left foot 100% fibrotic, no malodor or purulence, wound bed is dry,
Absent protective sensation B/L feet and cavus forefoot deformity with prominent lesser metatarsals
Assessemnt/Plan
-
DM2 with Early PAD
Profound DPN with Loss of protective sensation
Chronic diabetic ulcer left foot w/osteomyelitis per MRI
- decision made to proceed to OR, pt has been NPO since last night. potential risks and complications were reviewed in detail. All questions answered to patient understanding. Informed consent signed and placed on the chart.
[2024-05-30] MEDS: MAXIPIME 1000 MG IV (17:13)
[2024-05-30] MEDS: STERILE WATER FOR INJECTION 10 ML IV (17:14)
[2024-05-30] MEDS: NOVOLOG FLEXPEN-LOW RESISTANCE 1 UNITS SC (17:15)
--- NOTE | 2024-05-30 17:15 | PTCARENOTE ---
Pt arrived from ED, Ambulated from stretcher to bed with cane. Pt has no c/o pain at this time. Pt 96% on RA, afebrile, bp elevated, unchanged since admission to ER, admitting doctor aware. Plug Paster in room upon arrival to floor, Left plantar
wound with evidence of osteo per MRI reading, Pt has been NPO in ED. Plug Paster able to take to surgery, PT IV antibiotics given prior to departure taken to OR in bed with chart.
--- NOTE | 2024-05-30 18:43 | W.SUR.POST ---
Surgical Immediate Post Op
Note
Pre Op Diagnosis:
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
Post Op Diagnosis: same
Procedure Performed: Ostectomy left 3rd met
Primary Surgeon: Katerine Burk DPM, FACFAS
Secondary Surgeons:n/a
Anesthesia: mac + local block 10cc 1% lido plain
Estimated Blood Loss: 5 mL, pn ankle tourniquette used at 250mmHg for 29 min
Fluids: n/a
Drains/Shunts: n/a
Specimens/Cultures: bone prox margin left 3rd met (path) and base of prox phal left 3rd toe
Doppler/Duplex/Angio (Y/N): N
Complications: none
Operative Findings: no purulence or necrosis of tissue. plantar ulcer fibrotic only, no abscess
[2024-05-30 18:48] LABS: Glucose - Point of Care 153 mg/dl (70-99)
--- NOTE | 2024-05-30 19:51 | PTCARENOTE ---
Patient coming from PACU for left 3rd toe debridement. Surgical dressing c/d/i. LLE elevated in bed. Patient AAO x3, on RA, in no acute distress, no complaints of pain. Vitals are stable. Neurovascular check complete. Positive b/l dorsalis pedis
pulses. Patient able to move left foot and wiggle toes. Skin is warm to touch. Patient states decreased sensation due to neuropathy. Patient oriented to room and call bahena within reach. Will continue to monitor.
[2024-05-30] MEDS: LOVENOX 40 MG SC (20:14)
[2024-05-30 21:17] LABS: Glucose - Point of Care 202 mg/dl (70-99)
[2024-05-31] MEDS: STERILE WATER FOR INJECTION 10 ML IV ×3 (01:22→15:53)
[2024-05-31] MEDS: MAXIPIME 1000 MG IV ×3 (01:22→15:53)
[2024-05-31 03:32] VITALS: BP 144/79
[2024-05-31] MEDS: VANCOCIN 300 ML IV (05:40)
[2024-05-31] MEDS: SYNTHROID 125 MCG PO (05:40)
[2024-05-31] MEDS: VANCOCIN 300 MG IV (05:40)
[2024-05-31 07:10] VITALS: BP 153/67
[2024-05-31 07:13] LABS: % Basophils 0.6 % (0-2); % Eosinophils 3.4 % (0-6); % Immature Granulocytes 0.2 % (0-0.5); % Lymphocytes 16.9 % (20.5-51.1); % Monocytes 9.5 % (1.7-9.3); % Neutrophils 69.4 % (42.2-75.2); Absolute Basophils 0.1 10^3/uL (0-0.2); Absolute Eosinophils 0.4 10^3/uL (0-0.7); Absolute Lymphocytes 1.8 10^3/uL (1.2-3.4); Absolute Neutrophils 7.4 10^3/uL (1.4-6.5); Hematocrit 37.3 % (39.0-52.0); Hemoglobin 12.9 g/dL (13.0-18.0); Mean Corp Hgb Conc. 34.6 g/dL (33.0-37.0); Mean Corpuscular Hgb 30.9 pg (27.0-31.0); Mean Corpuscular Volume 89.2 fL (80.0-94.0); Mean Platelet Volume 9.6 fL (7.4-10.4); Nucleated Red Blood Cells % 0 % (-); Platelet Count 307 10^3/uL (130-400); Red Blood Cell Count 4.18 10^6/uL (4.70-6.10); White Blood Cell Count 10.6 10^3/uL (4.8-10.8)
[2024-05-31 07:32] LABS: Blood Urea Nitrogen 20 mg/dl (9-20); Calcium 9.4 mg/dl (8.4-10.2); Carbon Dioxide 22 mmol/L (22-30); Chloride 107 mmol/L (98-107); Estimated Creatinine Clearance 64 ml/min; Glucose 120 mg/dl (70-99); Potassium 4.1 mmol/L (3.5-5.1); Sodium 136 mmol/L (135-145); eGFR > 60.00
[2024-05-31 07:44] LABS: Glucose - Point of Care 119 mg/dl (70-99)
[2024-05-31] MEDS: NOVOLOG FLEXPEN-LOW RESISTANCE SC (07:58)
[2024-05-31] MEDS: COZAAR 25 MG PO (08:06)
[2024-05-31] MEDS: THERAGRAN 1 TABLET PO (08:06)
[2024-05-31] MEDS: ASPIR LOW (ENTERIC COATED) 81 MG PO (08:06)
[2024-05-31 10:59] VITALS: BP 129/61; PULSE 75; O2SAT 96
[2024-05-31 11:00] VITALS: BP 129/61; PULSE 75; O2SAT 95
--- NOTE | 2024-05-31 11:04 | PHA.VAN.FU ---
Vancomycin Assessment / Plan
- Assessment
Renal Function: Stable
WBC's are: WNL
In the past 24 hrs, patient has been: Afebrile
Concomitant Antimicrobials: cefepime
- Dosing Plan
Continue: Vanc 1500mg Q24H
- Monitoring Plan
No level(s) ordered at this time: consider levels in next few days
- Follow Up
Pharmacy will continue to follow.
Vancomycin Follow UP
- -
Patient Age: 78
Patient Sex: Male
Vancomycin Day #: 2
Indication: Bone And Joint
Requesting Provider: Katerine Low
Pertinent Antimicrobial Allergies:
no pertinent antibiotic allergies
Height / Weight:
Height 5 ft 10 in
Actual Weight 74.559 kg
Pertinent Past Medical History: DM
- Vital Signs / Lab Results
Temp Pulse Resp BP Pulse Ox
97.8 F 79 22 153/67 98
05/31/24 07:10 05/31/24 07:10 05/31/24 07:10 05/31/24 07:10 05/31/24 08:00
Lab Results - Hematology
05/30/24 05/31/24
11:35 07:00
WBC 8.7 10.6
Lab Results - Chemistry
05/30/24 05/31/24
11:35 07:00
BUN 23 H 20
Creatinine 1.1 1.0
Estimated Creat Clear 58 64
05/30/24
11:35
Lactic Acid 1.0
--- NOTE | 2024-05-31 11:37 | W.PN.HOSP.TC ---
Today's Communication/Plan
-
pending path and Cx
cont Abx
Assessment / Plan
Assessment / Plan
78yo M with PMHX of hypothyroidism, HTN, DM, HLD returned for the L foot swelling and wound. He recently was in ED but had to leave AMA due to the family issues. MRI showed acute OM and pateint had L 3rd metatarsal resection
A/P:
#L foot diabetic wound with acute OM
Vanco/cefepime
Follow Bcx
MRI L foot: 3 metatarsal acute OM
Podiatry consult: s/p resection on 05/30/24. Pending margins and Cx
ID consult
previous wound Cx showed Morganella morganii, MSSA and S.aglactae
follow ESR/CRP
PT/OT
#DM type 2 with circulatory complications
Accuchecks, Insulin SS, DM diet, check HgbA1c, hold oral hypoglycemics
#Essential HTN
#Hypothyroidism
#HLD
cont home meds
intollerant of statin
DVT ppx hep
Full code
I have spent at lest 36min reviewing chart, test results, communication with consultants and direct patient care
Anticipated Discharge: > 48 hours
Subjective/Interval History
-
Date of Service: May 31, 2024
Objective Data
-
Labs:
Laboratory Results
05/31/24
07:00
WBC 10.6
Hgb 12.9 L
Hct 37.3 L
Plt Count 307
Sodium 136
Potassium 4.1
Chloride 107
Carbon Dioxide 22
BUN 20
Creatinine 1.0
Glucose 120 H
Calcium 9.4
Vital Signs:
Vital Signs
Temp Pulse Resp BP Pulse Ox
97.8 F 79 22 153/67 98
05/31/24 07:10 05/31/24 07:10 05/31/24 07:10 05/31/24 07:10 05/31/24 08:00
I&O
05/30/24 05/31/24 06/01/24
06:59 06:59 06:59
Intake Total 480 / 480
Output Total 1400 / 1400
Balance -920 / -920
Review of Systems
-
History Source: Patient
All other systems: Reviewed and negative
Physical Exam
-
General: No Apparent Distress
HEENT: Normocephalic
Respiratory: Clear to Auscultation
Cardiac: Regular Rhythm
GI: Soft
Musculoskeletal: No Clubbing, No Cyanosis and No Edema
Skin: Warm
Neuro: Awake, Alert, Oriented and AO x 3
Psych: Calm
[2024-05-31 12:01] LABS: Glucose - Point of Care 251 mg/dl (70-99)
[2024-05-31] MEDS: NOVOLOG FLEXPEN-LOW RESISTANCE 3 UNITS SC (12:03)
[2024-05-31 13:15] LABS: Glycohemoglobin (HgbA1c) 8.2 % (4.0-5.6)
--- NOTE | 2024-05-31 13:25 | CM ---
Patient seen bedside.
IA completed.
Patient lives with spouse in a 2 story home with 1 step to enter.
Patients spouse with memory issues and is in [place] for respite while he is in the hospital.
Spouse has [facility] nurses.
patient independent prior to admission and drives.
No assistive devices, no VN.
PCP: Dr Gallagher
Pharmacy: [facility]
Plan: home with possible VN.
--- NOTE | 2024-05-31 13:40 | CON.ID ---
Consultation
-
Date/Time Consultation Requested: 05/30/2024 1412
Date/Time Consultation Performed: 05/31/2024 1330
Requesting Provider: Blossom Low
Performing Provider: Dr. Peralta
Reason for Consultation: Left foot infection
Chief Complaint / Past History
History of Present Illness
Sawyer Umaña is a 78-year-old male being evaluated at the request of Blossom Low in regards to a left foot infection. History is obtained from chart review, along with patient interview.
The patient reports that he developed a wound approximately 3 weeks ago on his left foot. He does not recall any trauma, but notes that he has underlying neuropathy so he did not feel anything. Ultimately he saw the wound, with associated redness
of the foot and he presented to an urgent care for further evaluation. There, he was examined and sent to the emergency room. He was evaluated, but left AMA as he needed to care for his . Once she was placed in a facility he came back for
ongoing care.
Upon his return, imaging was performed which revealed the presence of osteomyelitis in the left third toe. The patient was taken to the OR last evening for resection of the third toe. Infectious Diseases is asked to comment on further antibiotic
management.
At this time, the patient reports feeling well. He denies significant pain. He recalls no prior fevers or chills. No history of spreading erythema up the leg.
Past History
Additional Past Medical History:
HTN
Dyslipidemia
CAD
Asthma
DM
Neuropathy
Right lower lobe NSCLC
Additional Past Surgical History:
Right lower lobe lobectomy (2021)
Allergy History:
Qitasmn-RJF-PgC Reductase Inhibitor Allergy (Verified 05/26/24 13:43)
Myalgias
Medications Reviewed: Yes
Current Antibiotics:
Cefepime 1 g IV every 8 hours
Vancomycin (dosing per pharmacy)
Social History
Tobacco: Non-Smoker
Alcohol: None
Drug: None
Personal:
Living: With Family
Employment: Retired
Family History
Family History: Not Pertinent
Review of Systems
Vital Signs
Temp Pulse Resp BP Pulse Ox
97.8 F 79 22 153/67 98
05/31/24 07:10 05/31/24 07:10 05/31/24 07:10 05/31/24 07:10 05/31/24 08:00
Physical Exam
Physical Exam
Constitutional: No Acute Distress, Comfortable and Non-toxic
Eyes: No Conjunctival Hemorrhage and Sclera Anicteric
Oral: No Thrush and No Ulcers
Cardiovascular: Regular Rate and S1/S2; Negative S3/S4
Pulmonary: Clear; Negative Wheezes, Rales or Rhonchi
Gastrointestinal: Soft, Non Tender and Non Distended
Extremities: Negative Edema, Cyanosis or Erythema
Skin: Warm and Dry; Negative Rash or Jaundice
Wound: Other (Left foot dressed in Juan wrap. No erythema extending past the ankle.)
Neurological: Awake and Alert
Psychological: Calm
.
Lab / Diagnostic Study Results
05/31/24 07:00
05/31/24 07:00
Abs Immat Gran (auto) 0.0 10^3/uL (0-0.05) 05/31/24 07:00
Absolute Neuts (auto) 7.4 10^3/uL (1.4-6.5) H 05/31/24 07:00
Absolute Lymphs (auto) 1.8 10^3/uL (1.2-3.4) 05/31/24 07:00
Absolute Monos (auto) 1.0 10^3/uL (0.1-0.6) H 05/31/24 07:00
Absolute Basos (auto) 0.1 10^3/uL (0-0.2) 05/31/24 07:00
Immature Gran % 0.2 % (0-0.5) 05/31/24 07:00
Neutrophils % 69.4 % (42.2-75.2) 05/31/24 07:00
Lymphocytes % 16.9 % (20.5-51.1) L 05/31/24 07:00
Monocytes % 9.5 % (1.7-9.3) H 05/31/24 07:00
Eosinophils % 3.4 % (0-6) 05/31/24 07:00
Basophils % 0.6 % (0-2) 05/31/24 07:00
ESR 24 mm/hour (0-20) H 05/30/24 11:35
Lactic Acid 1.0 mmol/L (0.7-2.0) 05/30/24 11:35
C-Reactive Protein 7.70 mg/L (0.0-10.00) 05/30/24 11:35
Microbiology Results
Micro:
05/30/24 11:35 Blood Culture - Preliminary
Blood/Venous No Growth in 24 hours- Final report to follow
05/30/24 11:35 Blood Culture - Preliminary
Blood/Venous No Growth in 24 hours- Final report to follow
05/30/24 18:30 Tissue Culture - Preliminary
Foot - Left No Growth After 18-24 Hours
Gram Stain - Pending
SPEC #: [id number] BRENNAN: 05/26/24-1616 STATUS: COMP REQ #: [id number]
RECD: 05/26/24-[address]: Sheri CHRISTIANSON,Jackeline Rizvi
SOURCE: FOOT ENTR: 05/26/24-[address]: Lorena CHRISTIANSON,Rip De La Cruz
SPDESC: Left
ORDERED: Wound/Other
QUERIES: Date Specimen was Collected 05/26/24
Time Specimen was Collected 1556
Procedure Result Verified
Wound/abscess/other Cult Final 05/30/24-75
Few Morganella morganii
Moderate S aureus-Methicillin Sensitive
Moderate Group B Streptococcus agalactiae
1. Morganella morganii
M.I.C. RX
--------- ---
Amoxicillin/Potas. Clavulanate >16/8 R
Ampicillin >16 R
Ampicillin/Sulbactam >16/8 R
Aztreonam 8 I
Cefazolin >16 R
Cefepime <=2 S
Ceftriaxone <=1 S
Ertapenem <=0.5 S
Ciprofloxacin 1 R
Gentamicin <=2 S
Meropenem <=1 S
Piperacillin/Tazobactam <=8 S
Tetracycline <=4 S
Tobramycin <=2 S
Trimethoprim/Sulfamethoxazole <=2/38 S
2. S aureus-Methicillin Sensitive
M.I.C. RX
--------- ---
Amoxicillin/Potas. Clavulanate <=4/2 S
Ampicillin <=2 R
Clindamycin <=0.5 S
Gentamicin <=4 S
Erythromycin <=0.5 S
Levofloxacin <=1 S
Oxacillin <=0.25 S
Tetracycline <=4 S
Trimethoprim/Sulfamethoxazole <=0.5/9.5 S
Vancomycin 2 S
Imaging:
05/30/2024 MRI left lower extremity: There is enhancement of the marrow of the proximal aspect of the proximal phalanx of the left third toe, adjacent to a plantar soft tissue wound. These MR findings are highly suggestive of osteomyelitis.
05/26/2024 X-ray left foot: There is a soft tissue defect along the lateral aspect of the foot with underlying progressive erosion of the mid/distal fifth metatarsal and base of the fifth proximal phalanx. Findings likely represent osteomyelitis.
Assessment / Plan
Left foot osteomyelitis
- S/p left third toe amputation
Diabetic foot infection
HTN
Dyslipidemia
CAD
Asthma
DM with associated neuropathy (uncontrolled; HbA1c = 8.2)
Hx Right lower lobe NSCLC
Recommendations:
Continue with current empiric antibiotics (cefepime, vancomycin.)
Await bone cultures, along with pathology to guide decision regarding long-term antibiotics.
Follow white count and temperature curve.
Local care to the area.
Tight glucose control.
[2024-05-31 15:18] VITALS: BP 153/68
[2024-05-31 16:47] LABS: Glucose - Point of Care 234 mg/dl (70-99)
[2024-05-31] MEDS: NOVOLOG FLEXPEN-LOW RESISTANCE 2 UNITS SC (17:44)
[2024-05-31] MEDS: LOVENOX 40 MG SC (17:45)
--- NOTE | 2024-05-31 17:53 | W.PN.UPDATE ---
Update Note
Progress Note Update
POD #1 S/P ostectomy and debridement 5th met and toe- cx neg so far
Patient feeling well. Plantar ulcer is fibrotic once again.
Will order santyl for plantar ulceration left foot- will require ongoing HHC/wound care upon DC
PT WBAT in forefoot offloaded shoe left LE with walker assist- for fall prevention
Redressed the left foot incision.
Will order vascular studies- NGUYEN's/TBIs due to poor vascularity of plantar ulceration despite palpable pedal pulses
[2024-05-31 21:26] LABS: Glucose - Point of Care 268 mg/dl (70-99)
[2024-05-31 23:05] VITALS: BP 133/63
[2024-06-01] MEDS: VANCOCIN 300 ML IV (05:26)
[2024-06-01] MEDS: VANCOCIN 300 MG IV (05:26)
[2024-06-01] MEDS: SYNTHROID 125 MCG PO (05:26)
[2024-06-01 07:29] LABS: Glucose - Point of Care 141 mg/dl (70-99)
[2024-06-01 07:40] VITALS: BP 132/66
[2024-06-01] MEDS: SANTYL OINTMENT 1 APPLIC TOPICAL (08:30)
[2024-06-01] MEDS: STERILE WATER FOR INJECTION 10 ML IV ×4 (08:31→23:37)
[2024-06-01] MEDS: MAXIPIME 1000 MG IV ×4 (08:31→23:37)
[2024-06-01] MEDS: COZAAR 25 MG PO (08:31)
[2024-06-01] MEDS: THERAGRAN 1 TABLET PO (08:31)
[2024-06-01] MEDS: ASPIR LOW (ENTERIC COATED) 81 MG PO (08:31)
[2024-06-01] MEDS: NOVOLOG FLEXPEN-LOW RESISTANCE SC (08:37)
--- NOTE | 2024-06-01 09:40 | PHA.VAN.FU ---
Addendum entered and electronically signed by [place] [facility] 06/01/24 10:47:
Agree with resident's assessment and plan below
Original Note:
Vancomycin Assessment / Plan
- Assessment
Renal Function: Stable
WBC's are: WNL
In the past 24 hrs, patient has been: Afebrile
Concomitant Antimicrobials: Cefepime
- Dosing Plan
Continue: 1500mg Q24H
- Monitoring Plan
Peak Level: 06/02 0900
Trough Level: 06/03 0530
Monitoring Comments: Levels to be drawn after 3rd maintenance dose
- Follow Up
Pharmacy will continue to follow.
Vancomycin Follow UP
- -
Patient Age: 78
Patient Sex: Male
Vancomycin Day #: 3
Indication: Bone And Joint
Requesting Provider: Katerine Low / Dr. Peralta
Pertinent Antimicrobial Allergies:
no pertinent antibiotic allergies
Height / Weight:
Height 5 ft 10 in
Actual Weight 74.559 kg
Pertinent Past Medical History: DM
- Vital Signs / Lab Results
Temp Pulse Resp BP Pulse Ox
98.1 F 71 18 132/66 100
06/01/24 07:40 06/01/24 08:31 06/01/24 07:40 06/01/24 08:31 06/01/24 07:40
Lab Results - Hematology
05/30/24 05/31/24
11:35 07:00
WBC 8.7 10.6
Lab Results - Chemistry
05/30/24 05/31/24
11:35 07:00
BUN 23 H 20
Creatinine 1.1 1.0
Estimated Creat Clear 58 64
05/30/24
11:35
Lactic Acid 1.0
Microbiology Results
05/30/24 18:30 Tissue Culture - Preliminary
Foot - Left No Growth After 18-24 Hours
Gram Stain - Preliminary
05/30/24 11:35 Blood Culture - Preliminary
Blood/Venous No Growth in 24 hours- Final report to follow
05/30/24 11:35 Blood Culture - Preliminary
Blood/Venous No Growth in 24 hours- Final report to follow
--- NOTE | 2024-06-01 09:42 | CM ---
Patient seen bedside, discussed PT recommendations of SNF. Patient not agreeable to SNF. CM offered VN for home PT and wound care needs, patient not agreeable to VN. Patient reports his has [facility] VN and patient is not interested in services
for himself. Patient on IV antibiotics. CM will continue to follow for all discharge planning needs.
Plan; home no needs, not interested in SNF or VN.
[2024-06-01 09:51] LABS: % Basophils 0.9 % (0-2); % Eosinophils 4.6 % (0-6); % Immature Granulocytes 0.5 % (0-0.5); % Lymphocytes 19.9 % (20.5-51.1); % Monocytes 12.1 % (1.7-9.3); Absolute Basophils 0.1 10^3/uL (0-0.2); Absolute Eosinophils 0.4 10^3/uL (0-0.7); Absolute Lymphocytes 1.8 10^3/uL (1.2-3.4); Absolute Monocytes 1.1 10^3/uL (0.1-0.6); Absolute Neutrophils 5.5 10^3/uL (1.4-6.5); Hematocrit 38.5 % (39.0-52.0); Hemoglobin 12.8 g/dL (13.0-18.0); Mean Corp Hgb Conc. 33.2 g/dL (33.0-37.0); Mean Corpuscular Hgb 30.9 pg (27.0-31.0); Mean Platelet Volume 9.7 fL (7.4-10.4); Nucleated Red Blood Cells % 0 % (-); Platelet Count 292 10^3/uL (130-400); Red Blood Cell Count 4.14 10^6/uL (4.70-6.10); Red Cell Dist. Width 12.9 % (11.5-14.5); White Blood Cell Count 8.8 10^3/uL (4.8-10.8)
--- NOTE | 2024-06-01 09:55 | W.PN.HOSP.TC ---
Today's Communication/Plan
-
cont current abx pending path and Cx
Assessment / Plan
Assessment / Plan
78yo M with PMHX of hypothyroidism, HTN, DM, HLD returned for the L foot swelling and wound. He recently was in ED but had to leave A due to the family issues. MRI showed acute OM and pateint had L 3rd metatarsal resection
A/P:
#L foot diabetic wound with acute OM
Vanco/cefepime
Follow Bcx
MRI L foot: 3 metatarsal acute OM
Podiatry consult: s/p resection on 05/30/24. Pending margins and Cx
ID consult: pending postOP path and cultures
previous wound Cx showed Morganella morganii, MSSA and S.agalactiae
follow ESR/CRP
PT/OT
#DM type 2 with circulatory complications
Accuchecks, Insulin SS, DM diet, check HgbA1c, hold oral hypoglycemics
#Essential HTN
#Hypothyroidism
#HLD
cont home meds
intollerant of statin
DVT ppx hep
Full code
I have spent at lest 36min reviewing chart, test results, communication with consultants and direct patient care
Anticipated Discharge: > 48 hours
Subjective/Interval History
-
Date of Service: June 01, 2024
Objective Data
-
Labs:
Laboratory Results
06/01/24
08:46
WBC 8.8
Hgb 12.8 L
Hct 38.5 L
Plt Count 292
Sodium Pending
Potassium Pending
Chloride Pending
Carbon Dioxide Pending
BUN Pending
Creatinine Pending
Glucose Pending
Calcium Pending
Vital Signs:
Vital Signs
Temp Pulse Resp BP Pulse Ox
98.1 F 71 18 132/66 100
06/01/24 07:40 06/01/24 08:31 06/01/24 07:40 06/01/24 08:31 06/01/24 07:40
I&O
05/31/24 06/01/24 06/02/24
06:59 06:59 06:59
Intake Total 480 / 480 420 / 420
Output Total 1400 / 1400 1300 / 1300
Balance -920 / -920 -880 / -880
Review of Systems
-
History Source: Patient
All other systems: Reviewed and negative
Physical Exam
-
General: Well Developed, Well Nourished and No Apparent Distress
Respiratory: Clear to Auscultation
Cardiac: Regular Rhythm
GI: Soft, Nontender and Nondistended
Musculoskeletal: No Clubbing, No Cyanosis and No Edema
Skin: Warm
Neuro: Awake, Alert, Oriented and AO x 3
[2024-06-01 10:32] LABS: Blood Urea Nitrogen 20 mg/dl (9-20); Calcium 9.1 mg/dl (8.4-10.2); Carbon Dioxide 26 mmol/L (22-30); Chloride 104 mmol/L (98-107); Estimated Creatinine Clearance 58 ml/min; Glucose 209 mg/dl (70-99); Potassium 4.2 mmol/L (3.5-5.1); Sodium 140 mmol/L (135-145); eGFR > 60.00
[2024-06-01 11:35] LABS: Glucose - Point of Care 263 mg/dl (70-99)
[2024-06-01] MEDS: NOVOLOG FLEXPEN-LOW RESISTANCE 3 UNITS SC ×2 (11:37→17:38)
[2024-06-01 15:09] VITALS: BP 130/64
[2024-06-01 17:10] LABS: Glucose - Point of Care 258 mg/dl (70-99)
[2024-06-01] MEDS: LOVENOX 40 MG SC (17:39)
--- NOTE | 2024-06-01 18:09 | W.PN.POD ---
Today's Communication
Today's Communication
Cx and path reviewed, possible contaminant in cx Clinically, wound improved and does not appear infected.
Abt per ID recs
Will require [facility] or resume [facility] for wound care- adaptic dry dressing to incision dorsal foot left and santyl ointment post nss cleanse to plantar wound left foot daily
PT/WBAT in offloading shoe with walker assist
No further surgical treatment warranted from my perspective and ok to DC to home when medically stable
Assessment / Plan
-
POD # 2 S/P 3rd met head ostectomy and debridement 3rd toe PP base
DM2 with profound LOPS/neuropathy
Acquired foot deformity s/p prev partial 5th met amp left
Subjective
Chief Complaint
Chronic wound left foot/OM
Subjective
Feels well, no new concerns offered
Objective
Temp Pulse Resp BP Pulse Ox
97.8 F 74 20 130/64 99
06/01/24 15:09 06/01/24 15:09 06/01/24 15:09 06/01/24 15:09 06/01/24 15:09
06/01/24 08:46
06/01/24 08:46
Vital Signs and Lab results were reviewed.
Comment 3RD METATARSAL BONE PROXIMAL MARGIN
Date Specimen was Collected 05/30/24
Time Specimen was Collected 1830
Procedure Result Verified
Tissue Culture Preliminary 06/01/24-1138
Rare Presumptive Staphylococcus aureus
Gram Stain Preliminary 05/31/24-1438
Rare WBC
No Organisms Seen
PATH FINAL DIAGNOSIS
A.Proximal margin left 3rd metatarsal bone, excision:
Bone without acute osteomyelitis.
Review of Systems
Review of Systems
Review of Systems: No Fever, No Chills, No Nausea, No Diarrhea, No Joint Pain and No Skin Rash
Physical Exam
Physical Exam
General: No Apparent Distress and Comfortable
Musculoskeletal: No Edema
Skin: Warm, Dry and Neurotrophic Ulcer (plantar ulcer is unchanged in size, but decreased depth and increased granulation tissue to wound bed-now 50/50 fibrogranular. No odor, drainage or purulence)
Neuro: AO x 3
Vascular: Capillary Refill Delayed and Skin Temperature Warm to Cool
Dorsalis Pedis: Intact
Posterior Tibialis: Diminished
[2024-06-01 21:37] LABS: Glucose - Point of Care 203 mg/dl (70-99)
[2024-06-01 23:45] VITALS: BP 151/71
[2024-06-02] MEDS: VANCOCIN 300 ML IV (05:15)
[2024-06-02] MEDS: VANCOCIN 300 MG IV (05:15)
[2024-06-02] MEDS: SYNTHROID 125 MCG PO (05:17)
[2024-06-02 07:15] VITALS: BP 144/73
[2024-06-02 08:02] LABS: Glucose - Point of Care 191 mg/dl (70-99)
[2024-06-02] MEDS: NOVOLOG FLEXPEN-LOW RESISTANCE 1 UNITS SC (08:13)
[2024-06-02] MEDS: COZAAR 25 MG PO (08:13)
[2024-06-02] MEDS: THERAGRAN 1 TABLET PO (08:13)
[2024-06-02] MEDS: ASPIR LOW (ENTERIC COATED) 81 MG PO (08:13)
[2024-06-02] MEDS: SANTYL OINTMENT 1 APPLIC TOPICAL (08:14)
[2024-06-02] MEDS: STERILE WATER FOR INJECTION 10 ML IV (08:14)
[2024-06-02] MEDS: MAXIPIME 1000 MG IV (08:14)
[2024-06-02 09:14] LABS: % Basophils 0.9 % (0-2); % Eosinophils 5.5 % (0-6); % Immature Granulocytes 0.3 % (0-0.5); % Lymphocytes 26.2 % (20.5-51.1); % Monocytes 10.9 % (1.7-9.3); % Neutrophils 56.2 % (42.2-75.2); Absolute Basophils 0.1 10^3/uL (0-0.2); Absolute Eosinophils 0.5 10^3/uL (0-0.7); Absolute Lymphocytes 2.3 10^3/uL (1.2-3.4); Hematocrit 37.8 % (39.0-52.0); Mean Corp Hgb Conc. 34.4 g/dL (33.0-37.0); Mean Corpuscular Hgb 30.8 pg (27.0-31.0); Mean Corpuscular Volume 89.6 fL (80.0-94.0); Mean Platelet Volume 9.5 fL (7.4-10.4); Nucleated Red Blood Cells % 0 % (-); Platelet Count 298 10^3/uL (130-400); Red Blood Cell Count 4.22 10^6/uL (4.70-6.10); Red Cell Dist. Width 12.9 % (11.5-14.5); White Blood Cell Count 8.9 10^3/uL (4.8-10.8)
[2024-06-02 09:27] LABS: ALT (SGPT) 11 U/L (0-50); AST (SGOT) 18 U/L (17-59); Albumin 3.9 g/dl (3.5-5.0); Alkaline Phosphatase 81 U/L (38-126); Blood Urea Nitrogen 21 mg/dl (9-20); Calcium 9.4 mg/dl (8.4-10.2); Carbon Dioxide 28 mmol/L (22-30); Chloride 103 mmol/L (98-107); Estimated Creatinine Clearance 58 ml/min; Glucose 184 mg/dl (70-99); Potassium 4.7 mmol/L (3.5-5.1); Sodium 137 mmol/L (135-145); Total Bilirubin 0.7 mg/dl (0.2-1.3); Total Protein 6.4 g/dl (6.3-8.2); eGFR > 60.00
[2024-06-02 09:31] LABS: Vancomycin Peak 28.9 ug/ml (18-26)
--- NOTE | 2024-06-02 10:07 | W.PN.UPDATE ---
Update Note
Progress Note Update
Wound plantar left foot is filling in, still with 40% fibrofatty wound bed. No odor no cellulitis no drainage.
Incision intact clean & dry
Labs/temp stable.
Redressed incision withalginate dry dressing. Wound care orders placed for [facility]
Will follow as outpatient
--- NOTE | 2024-06-02 10:42 | PHA.VAN.FU ---
Vancomycin Assessment / Plan
- Assessment
Renal Function: Stable
WBC's are: WNL
In the past 24 hrs, patient has been: Afebrile
Concomitant Antimicrobials: cefepime
- Assessment - Therapeutic Drug Monitoring
Extrapolated Cmax (mcg/mL): 28.9
Peak level was drawn: Appropriately
- Dosing Plan
Continue: vancomycin 1500 mg q24h
- Monitoring Plan
Trough Level: trough level ordered for 529 824
- Follow Up
Pharmacy will continue to follow.
Vancomycin Follow UP
- -
Patient Age: 78
Patient Sex: Male
Vancomycin Day #: 4
Indication: Bone And Joint
Requesting Provider: Katerine Low / Dr. Peralta
Pertinent Antimicrobial Allergies:
no pertinent antibiotic allergies
Height / Weight:
Height 5 ft 10 in
Actual Weight 74.559 kg
Pertinent Past Medical History: DM
- Vital Signs / Lab Results
Temp Pulse Resp BP Pulse Ox
97.4 F 72 16 144/73 97
06/02/24 07:15 06/02/24 08:13 06/02/24 07:15 06/02/24 08:13 06/02/24 07:15
Lab Results - Hematology
05/30/24 05/31/24 06/01/24
11:35 07:00 08:46
WBC 8.7 10.6 8.8
06/02/24
09:02
WBC 8.9
Lab Results - Chemistry
05/30/24 05/31/24 06/01/24
11:35 07:00 08:46
BUN 23 H 20 20
Creatinine 1.1 1.0 1.1
Estimated Creat Clear 58 64 58
Albumin
06/02/24
09:02
BUN 21 H
Creatinine 1.1
Estimated Creat Clear 58
Albumin 3.9
05/30/24
11:35
Lactic Acid 1.0
Microbiology Results
05/30/24 18:30 Tissue Culture - Final
Foot - Left Staphylococcus haemolyticus
Gram Stain - Final
05/30/24 11:35 Blood Culture - Preliminary
Blood/Venous No Growth in 48 hours- Final report to follow
05/30/24 11:35 Blood Culture - Preliminary
Blood/Venous No Growth in 48 hours- Final report to follow
Therapeutic Drug Monitoring
Vancomycin Peak 28.9 ug/ml (18-26) H 06/02/24 09:02
[2024-06-02 11:25] LABS: Hematocrit 35.7 % (39.0-52.0); Hemoglobin 12.2 g/dL (13.0-18.0)
[2024-06-02 11:57] LABS: Glucose - Point of Care 284 mg/dl (70-99)
[2024-06-02] MEDS: NOVOLOG FLEXPEN-LOW RESISTANCE 3 UNITS SC (11:58)
--- NOTE | 2024-06-02 12:49 | W.PN.ID1 ---
Date of Service
Date of Service: June 02, 2024
Today's Communication
Transition to doxycycline.
Assessment / Plan
Left foot osteomyelitis
- S/p left third toe amputation
- proximal margin negative for residual osteomyelitis
Diabetic foot infection
HTN
Dyslipidemia
CAD
Asthma
DM with associated neuropathy (uncontrolled; HbA1c = 8.2)
Hx Right lower lobe NSCLC
Recommendations:
Pathology indicates no residual osteomyelitis, suggesting a surgical cure here.
Transition to oral doxycycline for an additional 7 days to treat any ongoing tissue infection.
No objection to discharge from an Infectious Disease standpoint.
Chief Complaint
-: Other (Left foot infection)
Subjective / Review of Systems
Review of Systems: No Fever and No Chills
Vital Signs / Physical Exam
Vital Signs
Vital Signs
Temp Pulse Resp BP Pulse Ox
97.4 F 72 16 144/73 97
06/02/24 07:15 06/02/24 08:13 06/02/24 07:15 06/02/24 08:13 06/02/24 07:15
Physical Exam
Constitutional: No Acute Distress, Comfortable and Non-toxic
Eyes: Sclera Anicteric
Cardiovascular: Regular Rate
Pulmonary: Non Labored
Gastrointestinal: Soft, Non Tender and Non Distended
Wound: Other (Left foot dressed. No erythema extending up leg.)
Neurological: Awake and Alert
Objective Data
Lab Data
Lab Results
06/02/24 10:57
06/02/24 09:02
ESR 24 mm/hour (0-20) H 05/30/24 11:35
Estimated Creat Clear 58 ml/min 06/02/24 09:02
Lactic Acid 1.0 mmol/L (0.7-2.0) 05/30/24 11:35
Total Bilirubin 0.7 mg/dl (0.2-1.3) 06/02/24 09:02
AST 18 U/L (17-59) 06/02/24 09:02
ALT 11 U/L (0-50) 06/02/24 09:02
Alkaline Phosphatase 81 U/L (38-126) 06/02/24 09:02
C-Reactive Protein 7.70 mg/L (0.0-10.00) 05/30/24 11:35
Most recent labs reviewed.
Micro Results:
05/30/24 11:35 Blood Culture - Preliminary
Blood/Venous No Growth in 72 hours- Final report to follow
05/30/24 11:35 Blood Culture - Preliminary
Blood/Venous No Growth in 72 hours- Final report to follow
05/30/24 18:30 Tissue Culture - Final
Foot - Left Staphylococcus haemolyticus
Gram Stain - Final
SPEC #: [id number] BRENNAN: 05/26/24-1616 STATUS: COMP REQ #: [id number]
RECD: 05/26/24-[address]: Sheri CHRISTIANSON,Jackeline Rizvi
SOURCE: FOOT ENTR: 05/26/24-[address]: Lorena CHRISTIANSON,Rip De La Cruz
SPDESC: Left
ORDERED: Wound/Other
QUERIES: Date Specimen was Collected 05/26/24
Time Specimen was Collected 1556
Procedure Result Verified
Wound/abscess/other Cult Final 05/30/24-851
Few Morganella morganii
Moderate S aureus-Methicillin Sensitive
Moderate Group B Streptococcus agalactiae
1. Morganella morganii
M.I.C. RX
--------- ---
Amoxicillin/Potas. Clavulanate >16/8 R
Ampicillin >16 R
Ampicillin/Sulbactam >16/8 R
Aztreonam 8 I
Cefazolin >16 R
Cefepime <=2 S
Ceftriaxone <=1 S
Ertapenem <=0.5 S
Ciprofloxacin 1 R
Gentamicin <=2 S
Meropenem <=1 S
Piperacillin/Tazobactam <=8 S
Tetracycline <=4 S
Tobramycin <=2 S
Trimethoprim/Sulfamethoxazole <=2/38 S
2. S aureus-Methicillin Sensitive
M.I.C. RX
--------- ---
Amoxicillin/Potas. Clavulanate <=4/2 S
Ampicillin <=2 R
Clindamycin <=0.5 S
Gentamicin <=4 S
Erythromycin <=0.5 S
Levofloxacin <=1 S
Oxacillin <=0.25 S
Tetracycline <=4 S
Trimethoprim/Sulfamethoxazole <=0.5/9.5 S
Vancomycin 2 S
Imaging:
05/30/2024 MRI left lower extremity: There is enhancement of the marrow of the proximal aspect of the proximal phalanx of the left third toe, adjacent to a plantar soft tissue wound. These MR findings are highly suggestive of osteomyelitis.
05/26/2024 X-ray left foot: There is a soft tissue defect along the lateral aspect of the foot with underlying progressive erosion of the mid/distal fifth metatarsal and base of the fifth proximal phalanx. Findings likely represent osteomyelitis.
Pathology:
05/31/2024 metatarsal bone, left third margin, proximal: No evidence of acute osteomyelitis.
Care Review
Plan reviewed with: Physician (Hospitalist)
--- NOTE | 2024-06-02 12:50 | W.PN.HOSP.TC ---
Today's Communication/Plan
-
STop cefepime
Assessment / Plan
Assessment / Plan
78yo M with PMHX of hypothyroidism, HTN, DM, HLD returned for the L foot swelling and wound. He recently was in ED but had to leave AMA due to the family issues. MRI showed acute OM and patient had L 3rd metatarsal resection. Bone margins clean and
bone Cx gre Staph.haemolyticus sensitive to tetracyclines and Vanco only
A/P:
#L foot diabetic wound with acute OM
Vanco pending final ID plan
Follow Bcx
MRI L foot: 3 metatarsal acute OM
Podiatry consult: s/p resection on 05/30/24. Pending margins and Cx
previous wound Cx showed Morganella morganii, MSSA and S.agalactiae
follow ESR/CRP
PT/OT
#DM type 2 with circulatory complications
Accuchecks, Insulin SS, DM diet, check HgbA1c, hold oral hypoglycemics
#Essential HTN
#Hypothyroidism
#HLD
cont home meds
intollerant of statin
DVT ppx hep
Full code
I have spent at lest 36min reviewing chart, test results, communication with consultants and direct patient care
Anticipated Discharge: Within 24 hours
Subjective/Interval History
-
Date of Service: June 02, 2024
Objective Data
-
Labs:
Laboratory Results
06/02/24 06/02/24
09:02 10:57
WBC 8.9
Hgb 13.0 12.2 L
Hct 37.8 L 35.7 L
Plt Count 298
Sodium 137
Potassium 4.7
Chloride 103
Carbon Dioxide 28
BUN 21 H
Creatinine 1.1
Glucose 184 H
Calcium 9.4
Total Bilirubin 0.7
AST 18
ALT 11
Alkaline Phosphatase 81
Vital Signs:
Vital Signs
Temp Pulse Resp BP Pulse Ox
97.4 F 72 16 144/73 97
06/02/24 07:15 06/02/24 08:13 06/02/24 07:15 06/02/24 08:13 06/02/24 07:15
I&O
06/01/24 06/02/24 06/03/24
06:59 06:59 06:59
Intake Total 420 / 420 1740 / 1740
Output Total 1300 / 1300 1850 / 1850
Balance -880 / -880 -110 / -110
Review of Systems
-
History Source: Patient
All other systems: Reviewed and negative
Physical Exam
-
General: No Apparent Distress
HEENT: Normocephalic
Respiratory: Clear to Auscultation
GI: Soft, Nontender and Nondistended
Musculoskeletal: No Clubbing, No Cyanosis and No Edema
Neuro: Awake, Alert, Oriented and AO x 3
Psych: Calm
--- NOTE | 2024-06-02 14:02 | W.DCSUMMARY ---
Discharge Summary
Discharge Data
Date of Admission: 05/30/24
Date of Discharge: 06/02/24
-
Pending Results: No
Hospital Course
78yo M with PMHX of hypothyroidism, HTN, DM, HLD returned for the L foot swelling and wound. He recently was in ED but had to leave AMA due to the family issues. MRI showed acute OM and patient had L 3rd metatarsal resection. Bone margins clean and
bone Cx gre Staph.haemolyticus sensitive to tetracyclines and Vanco only. ID recommended doxy for 7 days. Medically stable for D/C. Was offered STR, however absolutely declined it as he wants to go home to care for his .
I have spent at least 36min preparing d/c, reviwing chart, test results, communication with consultants and direct patient care
Patient was managed for:
#L foot diabetic wound with acute OM
#DM type 2 with circulatory complications
#Essential HTN
#Hypothyroidism
#HLD
Discharge Plan
-
Patient Disposition: Home (Routine Discharge)
Discharge Diagnosis/Procedures: Osteomyelitis
Diet: Diabetic, Carb Controlled
Activity: As tolerated and With Walker
Additional Activity: with forefoot offloaded shoe left foot
Driving Restrictions: As prior to admission
Other Services: PT
Wound Care: keep dressing dry and intact. to incision: adaptic and silver alginate folded 4x4 and medipore tape 3x/week, plantar wound cleanse with saline and apply nickel thick layer of santyl oint and cover with bordered gauze dressing daily
Referrals:
Yesy Gallagher MD [Family Provider] -
Mari Burk DPM [Active] -
Prescriptions:
New
doxycycline hyclate 100 mg Capsule
100 mg PO BID Qty: 14 0RF
Continued
Trulicity 1.5 MG/0.5 ML pen injector
1.5 mg SQ MO
Repatha SureClick 140 mg/mL pen injector
140 mg SC Q2W
aspirin 81 mg Tablet,Delayed Release (Dr/Ec)
81 mg PO DAILY
therapeutic multivitamin Tablet
1 tab PO DAILY
levothyroxine [Synthroid] 125 mcg Tablet
125 mcg PO DAILY
losartan 25 mg Tablet
25 mg PO DAILY
Patient Comments:
04/23/24- patient currently not filling but ecw and patient stating he takes this
Jardiance 25 mg Tablet
25 mg PO DAILY
metformin 1,000 mg Tablet
1,000 mg PO BID
Discontinued
sulfamethoxazole-trimethoprim [Bactrim DS] 800-160 mg tablet
1 tab PO BID 10 Days Qty: 20 0RF
Discharge Orders:
Discharge Patient (As Directed); Ordered 06/02/24
Ordered By: Ash Laura
Discharge Date and Time
Print Language: ARGENTINE
[2024-06-02 14:15] VITALS: BP 130/64
--- NOTE | 2024-06-02 15:42 | CM ---
Patient with Hx DM2 with Dx L foot diabetic wound, Left foot osteomyelitis, s/p left third toe amputation. WBAT in offloading shoe. PT recommends skilled rehab.
Met with patient who was preparing for d/c home today. The patient says he feels ready for d/c. IMM completed. Patient was wearing his offloading shoe. Discussed [facility]N and patient now agreeable- he chose [facility].
Patient volunteers that his will be discharging home today from [facility] where she was for respite.
Patient states that his daughter will provide transport home today and will be assisting patient and at home.
Message to Yeni COOPER Liaison re; referral and d/c today.
Plan home today with VN.
== END 2024-06-02 15:40 | disposition home health service (06) | DRG 629 ==
LOC: 4 EAST ACU 14:49
PROVIDERS: Clinical Nurse Specialist Family Health; Internal Medicine Infectious Disease; Physician Assistant; ADMITTING PHYSICIAN Internal Medicine; CONSULT PHYSICIAN Podiatrist Foot & Ankle Surgery; CONSULT PHYSICIAN Student in an Organized Health Care Education/Training Program; EMERGENCY PHYSICIAN Emergency Medicine; FAMILY PHYSICIAN Family Medicine
PROC: 0QBR0ZZ Excision of Left Toe Phalanx, Open Approach (ICD-10-PCS; 2024-05-30)
PROC: 0QBP0ZZ Excision of Left Metatarsal, Open Approach (ICD-10-PCS; 2024-05-30)
PROC: 0HBNXZZ Excision of Left Foot Skin, External Approach (ICD-10-PCS; 2024-05-30)
DX: E11.69 Type 2 diabetes mellitus with other specified complication (principal); M86.172 Other acute osteomyelitis, left ankle and foot; E11.621 Type 2 diabetes mellitus with foot ulcer; E11.42 Type 2 diabetes mellitus with diabetic polyneuropathy; B95.7 Other staphylococcus as the cause of diseases classified elsewhere; I10 Essential (primary) hypertension; E03.9 Hypothyroidism, unspecified; E78.5 Hyperlipidemia, unspecified; L97.529 Non-pressure chronic ulcer of other part of left foot with unspecified severity; I25.10 Atherosclerotic heart disease of native coronary artery without angina pectoris; Z79.84 Long term (current) use of oral hypoglycemic drugs; Z79.82 Long term (current) use of aspirin; Z79.899 Other long term (current) drug therapy; Z95.1 Presence of aortocoronary bypass graft
CPT/HCPCS: 88304; 88311; 73620; 73720; 80048; 80053; 80202; 82962; 83036; 83605; 85014; 85018; 85025; 85652; 86140; 87040; 87070; 87147; 87176; 87186; 87205; 93922; 93925; 96365; 96375; 97116; 97162; 97167; 99285; A9575

== ENCOUNTER 2024-10-08 19:28 | Emergency (ER) | payer OTHER, SELFPAY ==
[2024-10-08 19:32] VITALS: BP 167/100
[2024-10-08 19:52] LABS: % Basophils 0.8 % (0-2); % Eosinophils 4.6 % (0-6); % Immature Granulocytes 0.2 % (0-0.5); % Lymphocytes 29.5 % (20.5-51.1); % Monocytes 10.8 % (1.7-9.3); % Neutrophils 54.1 % (42.2-75.2); Absolute Basophils 0.1 10^3/uL (0-0.2); Absolute Eosinophils 0.4 10^3/uL (0-0.7); Absolute Lymphocytes 2.4 10^3/uL (1.2-3.4); Absolute Monocytes 0.9 10^3/uL (0.1-0.6); Absolute Neutrophils 4.5 10^3/uL (1.4-6.5); Hematocrit 40.3 % (39.0-52.0); Hemoglobin 13.5 g/dL (13.0-18.0); Mean Corp Hgb Conc. 33.5 g/dL (33.0-37.0); Mean Corpuscular Hgb 31.8 pg (27.0-31.0); Mean Corpuscular Volume 94.8 fL (80.0-94.0); Mean Platelet Volume 9.5 fL (7.4-10.4); Nucleated Red Blood Cells % 0 % (-); Platelet Count 234 10^3/uL (130-400); Red Blood Cell Count 4.25 10^6/uL (4.70-6.10); Red Cell Dist. Width 13.2 % (11.5-14.5); White Blood Cell Count 8.2 10^3/uL (4.8-10.8)
[2024-10-08 20:11] LABS: ALT (SGPT) 17 U/L (0-50); AST (SGOT) 17 U/L (17-59); Albumin 4.3 g/dl (3.5-5.0); Alkaline Phosphatase 86 U/L (38-126); Blood Urea Nitrogen 21 mg/dl (9-20); Calcium 9.4 mg/dl (8.4-10.2); Carbon Dioxide 28 mmol/L (22-30); Chloride 99 mmol/L (98-107); Glucose 310 mg/dl (70-99); Potassium 4.2 mmol/L (3.5-5.1); Sodium 136 mmol/L (135-145); Total Bilirubin 0.4 mg/dl (0.2-1.3); Total Protein 6.8 g/dl (6.3-8.2); eGFR > 60.00
[2024-10-08 20:15] LABS: Troponin I < 0.012 ng/ml
[2024-10-08 22:54] VITALS: BP 182/93
--- NOTE | 2024-10-08 23:22 | ED.GENMED ---
History of Present Illness
General
Chief Complaint: Numbness
Time Seen by Provider: 10/08/24 23:19
History of Present Illness
History of Present Illness:
TIME OF INITIAL ENCOUNTER: 11:30 PM
HPI: Patient presents with bilateral hand numbness. He frequently talks about his ill who has had a stroke and states that he has been under a lot of stress. When we talked about the possibility of anxiety he thinks that this is definitely a
real possibility. He he has diabetic neuropathy but does not report any new symptoms to the lower extremities. Currently, his symptoms have resolved and lasted for about an hour. He never had any motor dysfunction.
EXAM:
GENERAL: Well appearing in no distress
HEENT: Moist oral mucosa
CARDIOVASCULAR: No murmurs, normal heart rate, regular rhythm, No chest wall tenderness
PULMONARY: No respiratory distress, breath sounds are clear and equal
ABDOMEN: Soft with no peritoneal signs, no tenderness
NEUROLOGIC: Excellent strength all extremities, no coordination deficits
PSYCHIATRIC: Appropriate mental status, normal insight and judgement
EXTREMITIES: Nontender, no edema, moves all extremities equally
SKIN: No rash, no lesions
NUMBER AND COMPLEXITY OF PROBLEMS ADDRESSED AT THE ENCOUNTER
� Chronic conditions affecting care: Diabetes, diabetic neuropathy, CAD, asthma, former smoker, hypothyroidism, anemia, depression
� Acute Exacerbation and/or Progression of Chronic Illness: This is an acute problem
� Differential Diagnosis includes: Hyperventilation/anxiety, diabetic neuropathy, vascular abnormality unlikely as he has excellent perfusion on exam
AMOUNT AND/OR COMPLEXITY OF DATA TO BE REVIEWED AND ANALYZED
� I performed an independent evaluation of and my interpretation is:
EKG: Sinus 67, left axis deviation, artifact noted, nonspecific ST abnormality, first-degree AV block
CT: CT head shows no acute abnormality
X-rays:
Laboratory Studies: White count is 8.2, hemoglobin 15.5, chemistries unremarkable however the glucose is 310, troponin less than 0.012
Other:
� Review of other/old records: I reviewed records. The patient was admitted here with osteomyelitis of the left foot in May 2024.
� Clinical information was obtained by an independent historian: None needed
� Prescriptions/Medications Considered but not given:
� Further testing considered but not performed:
RISK OF COMPLICATIONS AND/OR MORBIDITY OR MORTALITY OF PATIENT MANAGEMENT
� Social determinants of health affecting care: Lives at home, cares for his who has had a stroke
� Discussion with other providers:
� Escalation of care including admission/observation vs risk of discharge considered: Other than hyperglycemia, labs relatively unremarkable. CT brain was obtained from triage.
ANY OTHER UPDATES:
12:15 AM: I reassessed patient. Unremarkable ED workup with exception of hyperglycemia. Patient again states that he thinks that his symptoms could be related to anxiety.
Past History
Past History
ED Past Medical History: CAD, Cancer, HTN and NIDDM
ED Past Surgical History: Cardiac
Social History
Tobacco: Former smoker
Alcohol: None
Drug: None
Personal:
Living: with family
Phy Exam
Physical Exam
Physical Exam:
See HPI
Course
Orders/Labs/Results
Orders:
Orders
10/08/24 19:36
Electrocardiogram (*1) Urgent
Reason for Study: TIA/Stroke
CT Head W/o Iv Contrast Urgent
Comment:
Reason For Exam: numbness
EKG- Treatment ONCE
10/08/24 19:44
Complete Blood Count/With Diff Urgent
Comprehensive Metabolic Panel Urgent
Troponin I Urgent
Abnormal Lab Results
10/08/24
19:44
RBC 4.25 L 10^6/uL
(4.70-6.10)
MCV 94.8 H fL
(80.0-94.0)
MCH 31.8 H pg
(27.0-31.0)
Absolute Monos (auto) 0.9 H 10^3/uL
(0.1-0.6)
Monocytes % 10.8 H %
(1.7-9.3)
BUN 21 H mg/dl
(9-20)
Glucose 310 H mg/dl
(70-99)
10/08/24 19:44
10/08/24 19:44
Vital Signs
Initial and Last Documented VS:
Initial Vital Signs
Temp Pulse Resp BP Pulse Ox
36.7 C 71 18 167/100 98
10/08/24 19:32 10/08/24 19:32 10/08/24 19:32 10/08/24 19:32 10/08/24 19:32
Last Documented Vital Signs
Temp Pulse Resp BP Pulse Ox
36.7 C 68 13 187/86 99
10/08/24 19:32 10/08/24 23:33 10/08/24 23:33 10/08/24 23:33 10/08/24 23:33
*Critical Care Note
Total Time (30-74mins, 75-104mins- exclusive of procedures): Not Applicable
ED Attending Note
-
Portions of this chart may have been created with voice recognition software.� Occasional wrong word or��sound alike� substitutions may have occurred due to the inherent limitations of voice recognition software.
Discharge Plan
Departure
Patient Disposition: Home (Routine Discharge)
Date of Disposition: 10/09/24
Time of Disposition: 00:18
Patient with high blood pressure during this ER visit?: Yes
Discharge Problem:
Paresthesia
Instructions: Paresthesia (DC), BLOOD PRESSURE
Prescriptions:
No Action
Trulicity 1.5 MG/0.5 ML pen injector
1.5 mg SQ MO
Repatha SureClick 140 mg/mL pen injector
140 mg SC Q2W
aspirin 81 mg Tablet,Delayed Release (Dr/Ec)
81 mg PO DAILY
therapeutic multivitamin Tablet
1 tab PO DAILY
levothyroxine [Synthroid] 125 mcg Tablet
125 mcg PO DAILY
losartan 25 mg Tablet
25 mg PO DAILY
Patient Comments:
04/23/24- patient currently not filling but ecw and patient stating he takes this
Jardiance 25 mg Tablet
25 mg PO DAILY
metformin 1,000 mg Tablet
1,000 mg PO BID
Referrals:
Yesy Gallagher MD [Family Provider] -
Activity Restrictions/Additional Instructions:
CAT scan of your brain is unremarkable. Blood work is also relatively unremarkable however your glucose was high at 310. Follow-up your primary care doctor. Return here if worse or other concerns.
Interventions
Interventions:
*General Assessment Last Done: 10/08/24 19:32
*Neglect/Abuse Screening Last Done: 10/08/24 23:30
ED- Fall Risk Assessment Last Done: 10/08/24 23:30
*ED COVID-19 Vaccine History Last Done: 10/08/24 23:30
ED- Neurological Assessment Last Done: 10/08/24 23:30
Discharge Date and Time
Print Language: [id number]
[2024-10-08 23:33] VITALS: BP 187/86
[2024-10-08 23:39] VITALS: BMI 25.0
[2024-10-09] VITALS: BP 165/85
== END 2024-10-09 00:45 | disposition home or self-care (01) ==
LOC: EMR 19:28
PROVIDERS: Student in an Organized Health Care Education/Training Program; EMERGENCY PHYSICIAN Emergency Medicine; FAMILY PHYSICIAN Family Medicine
DX: R20.2 Paresthesia of skin (principal); E11.40 Type 2 diabetes mellitus with diabetic neuropathy, unspecified; I10 Essential (primary) hypertension; I25.10 Atherosclerotic heart disease of native coronary artery without angina pectoris; Z87.891 Personal history of nicotine dependence
CPT/HCPCS: 99284; 70450; 80053; 84484; 85025; 93005